=== PATIENT | male | born 1960 | race Caucasian/White ===

== ENCOUNTER 2020-07-11 08:21 | Day surgery (SDC) | payer BC, SELFPAY ==
[2020-07-04 12:35] VITALS: BMI 26.9
--- NOTE | 2020-07-10 09:39 | HO.ANESPROP2 ---
Documented by User: Anny Vanessa 07/10/20 09:47 HPI - Anesthesia Eval Consult details Narrative: 59yo M for Colonoscopy [facility] Surgical History Surgical History H/O arthroscopic knee surgery Hx of colonoscopy Hx of tonsillectomy Social History Social History Smoking Status: Never smoker Second Hand Smoke Exposure: Yes Use of substances other than those prescribed or required for medical reasons: Yes Advance Directives Information Provided: No Recently lost weight without trying: No Meds Allergies Allergy/AdvReac Type Severity Reaction Status Date / Time No Known Allergies Allergy Unverified 06/19/20 15:18 [No Known Allergies*] Home Medications Medication Instructions Recorded Confirmed Type ibuprofen 600 mg PO QID PRN 07/10/20 07/10/20 History tadalafil 1 tab PO DAILY PRN 07/10/20 07/10/20 History Exam Exam Date and Time: July 10, 2020 0939 Height,Weight and Vital Signs: Height 5 ft 5 in Weight 73.482 kg Assessment and Plan Assessment Anesthesia Assessment: Chart Reviewed Documented by User: Diana Paz 07/11/20 10:08 [facility] Surgical History Surgical History H/O arthroscopic knee surgery Hx of colonoscopy Hx of tonsillectomy Social History Social History Smoking Status: Never smoker Second Hand Smoke Exposure: Yes Use of substances other than those prescribed or required for medical reasons: Yes Advance Directives Information Provided: No Recently lost weight without trying: No Meds Allergies Allergy/AdvReac Type Severity Reaction Status Date / Time No Known Allergies Allergy Unverified 06/19/20 15:18 [No Known Allergies*] Home Medications Medication Instructions Recorded Confirmed Type ibuprofen 600 mg PO QID PRN 07/10/20 07/10/20 History tadalafil 1 tab PO DAILY PRN 07/10/20 07/10/20 History Exam Airway Mallampati Class: II TM Dist: >3cm Neck ROM: Full Assessment and Plan Assessment Anesthesia Assessment: Anesthesia Plan Discussed and Chart Reviewed Final Anesthetic Review NPO: Yes ASA Class: I Final Preanesthetic Review: No Changes in Pt Med Stat, Meds/Allgs Chart Reviewed, Consent Obtained/Reviewed and Anes Risks/Benef Reviewed Patient Risk: Low Procedure Risk: Low Assessment/Block/Sedation in SS: Assess/Block/Sedation-SS Anesthetic Plan Anesthetic Plan: MAC: Disposition: Standard PACU
[2020-07-11] VITALS (7 sets, daily range): BP systolic 138–151; BP diastolic 66–85; PULSE 58–88; RESP 16–20; TEMP 36.1–36.4; O2SAT 92–99; BMI 26.9
[2020-07-11] MEDS: Lactated Ringers 1,000 ML 100 ML IVCONT (08:57)
[2020-07-11] MEDS: Albuterol Sulfate (0.083%) 2.5 MG/3 ML VIAL.NEB INHALE (11:47)
--- NOTE | 2020-07-11 12:15 | OP_ITS ---
SURGEON: Raudel Casey MD INDICATIONS: The patient presents for evaluation of colorectal cancer screening. Full consent has been obtained from him for this, including risks of bleeding and perforation. PREOPERATIVE DIAGNOSIS: Colorectal cancer screening. POSTOPERATIVE DIAGNOSIS: PROCEDURE PERFORMED: Colonoscopy to the cecum and terminal ileum with biopsy and removal of polyps. ESTIMATED BLOOD LOSS: COMPLICATIONS: ANESTHESIA: Monitored anesthesia care. ASSISTANTS: SPECIMENS: POSTOPERATIVE DIAGNOSES: Colorectal cancer screening, small colon polyps, sigmoid diverticulosis, and small internal hemorrhoids. DESCRIPTION OF PROCEDURE: The patient was placed in the left lateral decubitus position. The digital rectal exam revealed no abnormalities. The Olympus video pediatric colonoscope was entered into the rectum and advanced easily to the cecum. Once in the cecum, I did identify normal-appearing cecal pouch with appendiceal orifice and a normal-appearing ileocecal valve. The terminal ileum was cannulated and appeared normal. Scope was withdrawn back in the colon. The entire cecum and ileocecal valve appeared normal. The scope was slowly withdrawn assessing all mucosal surfaces carefully. Preparation was excellent. At 20 cm and at 60 cm, were flat less than 5 mm polyps, which were each biopsied and completely removed with cold biopsy forceps. I did not visualize any other polyps, colitis, nor angiodysplasia. There was a mild amount of sigmoid diverticulosis. In the rectum, scope was retroflexed visualizing small internal hemorrhoids, but no other pathology. The rectal mucosa appeared normal. The scope was straightened and withdrawn from the patient. He tolerated the procedure well and was returned to the recovery area in stable condition. IMPRESSION: 1. Small colon polyps, status post biopsy and removal. 2. Mild diverticulosis. 3. Small internal hemorrhoids. PLAN: The results of the biopsies will be checked. If these are tubular adenoma, I would recommend a followup colonoscopy in 5 years. If they are both hyperplastic, I would recommend a followup colonoscopy in 10 years. He will otherwise see me on a p.r.n. basis. This has been discussed with his . MD NAYANA Mccallum/JOSHUA / [phone]
--- NOTE | 2020-07-11 12:36 | HO.POSTANES ---
Post Anesthesia Evaluation Post Anesthesia Evaluation Vital Signs: Vital Signs Temp Pulse Resp BP Pulse Ox 07/11/20 11:43 74 18 138/66 98 07/11/20 11:28 62 20 151/84 H 93 07/11/20 11:15 64 20 141/82 H 93 07/11/20 11:11 20 95 07/11/20 11:00 77 18 92 07/11/20 10:45 97.0 F 88 16 147/85 H 94 07/11/20 08:55 97.5 F 58 16 141/72 H 99 Anesthesia: Monitored Mental Status: Awake Pain Control: Satisfactory Nausea/Vomiting: None Hydration: Adequate Anesthesia-Related Issues: No Anes. Related Issues (Patient a little wheezy post procedure. Sats 93. Albuterol treatment, incentive spirometry ordered. Patient feels much better. Sats 98% in room air. Ok to discharge. Advised to call pcp if symptoms recur.)
== END 2020-07-11 12:58 | disposition home or self-care (01) ==
PROVIDERS: PCP Internal Medicine; Visit Provider Internal Medicine
PROC: 0DJD8ZZ Inspection of Lower Intestinal Tract, Via Natural or Artificial Opening Endoscopic (ICD-10-PCS; CPT 45378; principal; 2020-07-11 09:30)
DX: Z12.11 Encounter for screening for malignant neoplasm of colon (principal); D12.4 Benign neoplasm of descending colon; D12.5 Benign neoplasm of sigmoid colon; K57.30 Diverticulosis of large intestine without perforation or abscess without bleeding; K64.8 Other hemorrhoids
CPT/HCPCS: 45380; 88305; 94640; J3010

== ENCOUNTER 2020-07-16 09:47 | Outpatient (REF) | payer BC, SELFPAY ==
--- NOTE | 2020-07-16 09:57 | XR_ITS ---
EXAMINATION: XR CHEST CLINICAL INFORMATION: Cough COMPARISON: None TECHNIQUE: 2 frontal views and a lateral projection are obtained for a total of 3 views. FINDINGS: The lungs are clear. There is no airspace consolidation or groundglass opacity. The vascularity is normal. The costophrenic sulci are clear. There is mild hyperinflation. The heart is normal in size. The hilar and mediastinal contours are normal. Bony structures are unremarkable. IMPRESSION: Lungs clear.
== END 2020-07-16 09:48 | disposition home or self-care (01) ==
LOC: HO.XRAY 09:47
PROVIDERS: PCP Internal Medicine; Visit Provider Internal Medicine
DX: R05 Cough (principal)
CPT/HCPCS: 71046

== ENCOUNTER → 2020-09-10 14:00 | Outpatient (BNVA) | payer BC, SELFPAY | PROVIDERS: Visit Provider Orthopaedic Surgery | DX: Z76.89 Persons encountering health services in other specified circumstances (principal) ==

== ENCOUNTER 2020-10-28 07:11 | Outpatient (REF) | payer BC, SELFPAY ==
[2020-10-28 07:39] LABS: MANUAL DIFF FLAG NO
[2020-10-28 07:44] LABS: Basophils Absolute Auto 0.1 X10*3/uL (0.0-0.2); Basophils Percent Auto 0.8 % (0-2); Eosinophils Absolute Auto 0.3 X10*3/uL (0.0-0.4); Eosinophils Percent Auto 3.2 % (0-4); Hematocrit 47.9 % (42-52); Hemoglobin 15.7 g/dl (14.0-18.0); Imm Gran Abs Auto 0.02 X10*3/uL (0.00-0.03); Imm Gran Pct Auto 0.3 % (0.0-0.4); Lymphocytes Absolute Auto 2.3 X10*3/uL (1.2-4.9); Lymphocytes Percent Auto 29.3 % (20-40); Mean Corpuscular HGB Conc 32.8 g/dl (31.0-36.0); Mean Corpuscular Volume 91.6 fL (80-98); Mean Platelet Volume 10.2 fL (9.4-12.4); Monocytes Absolute Auto 0.8 X10*3/uL (0.1-1.2); Monocytes Percent Auto 9.6 % (2-11); Neutrophils Absolute Auto 4.4 X10*3/uL (2.0-8.3); Neutrophils Percent Auto 56.8 % (45-73); Platelet Count 211 X10*3/uL (160-400); Red Blood Count 5.23 X10*6/uL (4.60-5.80); Red Cell Distribution Width 12.6 % (11.0-16.0); White Blood Count 7.8 X10*3/uL (4.8-10.8)
[2020-10-28 08:00] LABS: Glucose Urine UA NEG (NEG); Leukocyte Esterase Urine NEG (NEG); Nitrite Urine NEG (NEG); PH 5.5 (5.0-8.0); Specific Gravity - Urine >= 1.030 (1.005-1.025); Urine Blood NEG (NEG); Urine Ketones NEG (NEG); Urine Protein NEG (NEG-TRACE)
[2020-10-28 08:08] LABS: Appearance Urine CLEAR; Color Urine YELLOW
[2020-10-28 08:39] LABS: Alanine Aminotransferase 22 U/L (0-40); Albumin Level 4.3 g/dL (3.5-5.0); Alkaline Phosphatase 82 U/L (39-117); Anion Gap 12 (12-20); Aspartate Amino Transferase 20 U/L (5-37); Bilirubin Total 0.6 mg/dL (0.0-1.0); Blood Urea Nitrogen 18 mg/dL (9-16); Calcium 8.9 mg/dL (8.4-10.2); Carbon Dioxide 27 mmol/L (22-29); Chloride 109 mmol/L (96-108); Cholesterol 201 mg/dL; Estimated Glomerular Filt Rate > 60; Glucose Fasting 92 mg/dL (60-99); HDL Cholesterol 33 mg/dL; LDL Cholesterol Calculated 128 mg/dl; Potassium 3.9 mmol/l (3.3-5.1); Sodium 144 mmol/L (135-145); Total Protein 6.5 g/dL (6.5-8.0); Triglycerides 202 mg/dL
[2020-10-28 09:00] LABS: Prostate Specific Antigen Scr 2.85 ng/mL (<0.05-4.0)
== END 2020-10-28 07:12 | disposition home or self-care (01) ==
LOC: HO.LAB 07:11
PROVIDERS: Visit Provider Internal Medicine
DX: Z00.00 Encounter for general adult medical examination without abnormal findings (principal); E78.2 Mixed hyperlipidemia; E78.6 Lipoprotein deficiency; R97.20 Elevated prostate specific antigen [PSA]
CPT/HCPCS: 36415; 80053; 80061; 81003; 84153; 85025

== ENCOUNTER 2021-05-15 10:18 | Outpatient (REF) | payer BC, SELFPAY ==
[2021-05-15 11:04] LABS: PSA,Total (Free>4and<10) 2.43 ng/mL (0.00-4.00)
== END 2021-05-15 10:19 | disposition home or self-care (01) ==
LOC: HO.LNP 10:18
PROVIDERS: Visit Provider Internal Medicine
DX: R97.20 Elevated prostate specific antigen [PSA] (principal); Z12.5 Encounter for screening for malignant neoplasm of prostate
CPT/HCPCS: 84153

== ENCOUNTER 2022-01-19 10:52 | Outpatient (REF) | payer BC, SELFPAY ==
[2022-01-19 10:57] LABS: MANUAL DIFF FLAG NO
[2022-01-19 11:09] LABS: Basophils Absolute Auto 0.1 X10*3/uL (0.0-0.2); Basophils Percent Auto 0.8 % (0-2); Eosinophils Absolute Auto 0.2 X10*3/uL (0.0-0.4); Hematocrit 46.2 % (42.0-52.0); Hemoglobin 15.1 g/dl (14.0-18.0); Imm Gran Abs Auto 0.03 X10*3/uL (0.00-0.03); Imm Gran Pct Auto 0.4 % (0.0-0.4); Lymphocytes Absolute Auto 2.3 X10*3/uL (1.2-4.9); Lymphocytes Percent Auto 29.6 % (20-40); Mean Corpuscular HGB Conc 32.7 g/dl (31.0-36.0); Mean Corpuscular Volume 91.7 fL (80.0-98.0); Mean Platelet Volume 10.8 fL (9.4-12.4); Monocytes Absolute Auto 0.8 X10*3/uL (0.1-1.2); Monocytes Percent Auto 9.7 % (2-11); Neutrophils Absolute Auto 4.4 x10*3/uL (2.0-8.3); Neutrophils Percent Auto 56.5 % (45-73); Platelet Count 241 X10*3/uL (160-400); Red Blood Count 5.04 X10*6/uL (4.60-5.80); Red Cell Distribution Width 13.2 % (11.0-16.0); White Blood Count 7.7 X10*3/uL (4.8-10.8)
[2022-01-19 11:16] LABS: Alanine Aminotransferase 23 U/L (0-40); Albumin Level 4.1 g/dL (3.5-5.0); Alkaline Phosphatase 85 U/L (39-117); Anion Gap 11 (12-20); Aspartate Amino Transferase 21 U/L (5-37); Bilirubin Total 0.7 mg/dL (0.0-1.0); Blood Urea Nitrogen 19 mg/dL (9-16); Calcium 9.3 mg/dL (8.4-10.2); Carbon Dioxide 27 mmol/L (22-29); Chloride 110 mmol/L (96-108); Cholesterol 216 mg/dL; Estimated Glomerular Filt Rate > 60; Glucose Fasting 90 mg/dL (60-99); HDL Cholesterol 33 mg/dL; LDL Cholesterol Calculated 155 mg/dl; Potassium 4.2 mmol/L (3.3-5.1); Sodium 144 mmol/L (135-145); Total Protein 6.7 g/dL (6.5-8.0); Triglycerides 141 mg/dL
[2022-01-19 11:18] LABS: Appearance Urine CLEAR; Color Urine YELLOW; Glucose Urine UA NEG (NEG); Leukocyte Esterase Urine NEG (NEG); Nitrite Urine NEG (NEG); PH 5.5 (5.0-8.0); Specific Gravity - Urine >= 1.030 (1.005-1.025); Urine Blood TRACE (NEG); Urine Ketones NEG (NEG); Urine Protein NEG (NEG-TRACE)
[2022-01-19 11:40] LABS: PSA,Total (Free>4and<10) 2.32 ng/mL (0.00-4.00)
== END 2022-01-19 10:53 | disposition home or self-care (01) ==
LOC: HO.LNP 10:52
PROVIDERS: Visit Provider Internal Medicine
DX: Z00.00 Encounter for general adult medical examination without abnormal findings (principal); Z12.5 Encounter for screening for malignant neoplasm of prostate; E78.2 Mixed hyperlipidemia; E78.6 Lipoprotein deficiency; R97.20 Elevated prostate specific antigen [PSA]
CPT/HCPCS: 80053; 80061; 81001; 81003; 84153; 85025

== ENCOUNTER 2023-03-22 16:38 | Outpatient (REF) | payer BC, SELFPAY ==
[2023-03-22 16:59] LABS: MANUAL DIFF FLAG NO
[2023-03-22 17:04] LABS: Basophils Absolute Auto 0.1 X10*3/uL (0.0-0.2); Basophils Percent Auto 0.8 % (0-2); Eosinophils Absolute Auto 0.4 X10*3/uL (0.0-0.4); Eosinophils Percent Auto 4.5 % (0-4); Hemoglobin 15.7 g/dl (14.0-18.0); Imm Gran Abs Auto 0.02 X10*3/uL (0.00-0.03); Imm Gran Pct Auto 0.3 % (0.0-0.4); Lymphocytes Absolute Auto 2.8 X10*3/uL (1.2-4.9); Lymphocytes Percent Auto 36.5 % (20-40); Mean Corpuscular HGB Conc 32.7 g/dl (31.0-36.0); Mean Corpuscular Hemoglobin 30.2 pg (27.0-33.0); Mean Corpuscular Volume 92.3 fL (80.0-98.0); Mean Platelet Volume 10.7 fL (9.4-12.4); Monocytes Absolute Auto 0.7 X10*3/uL (0.1-1.2); Monocytes Percent Auto 8.8 % (2-11); Neutrophils Absolute Auto 3.8 x10*3/uL (2.0-8.3); Neutrophils Percent Auto 49.1 % (45-73); Platelet Count 208 X10*3/uL (160-400); Red Cell Distribution Width 13.1 % (11.0-16.0); White Blood Count 7.7 X10*3/uL (4.8-10.8)
[2023-03-22 17:46] LABS: PSA,Total (Free>4and<10) 3.75 ng/mL (0.00-4.00)
[2023-03-22 17:50] LABS: Appearance Urine Clear; Color Urine Yellow; Glucose Urine UA Negative (Negative); Leukocyte Esterase Urine Negative (Negative); Nitrite Urine Negative (Negative); PH 5.5 (5.0-9.0); Urine Blood Negative (Negative); Urine Ketones Negative (Negative); Urine Protein Negative (Neg-Trace)
[2023-03-22 20:40] LABS: Alanine Aminotransferase 23 U/L (0-40); Alkaline Phosphatase 77 U/L (39-117); Anion Gap 17 (12-20); Aspartate Amino Transferase 21 U/L (5-37); Bilirubin Total 0.5 mg/dL (0.0-1.0); Blood Urea Nitrogen 20 mg/dL (9-16); Calcium 9.3 mg/dL (8.4-10.2); Carbon Dioxide 24 mmol/L (22-29); Chloride 108 mmol/L (96-108); Cholesterol 203 mg/dL; Estimated Glomerular Filt Rate 56; Glucose Fasting 84 mg/dL (60-99); HDL Cholesterol 27 mg/dL; LDL Cholesterol Calculated 120 mg/dl; Potassium 3.9 mmol/L (3.3-5.1); Sodium 145 mmol/L (135-145); Total Protein 6.4 g/dL (6.5-8.0); Triglycerides 282 mg/dL
== END 2023-03-22 16:39 | disposition home or self-care (01) ==
LOC: HO.10HDLNP 16:38
PROVIDERS: Visit Provider Internal Medicine
DX: Z13.89 Encounter for screening for other disorder (principal)
CPT/HCPCS: 80053; 80061; 81003; 84153; 85025

== ENCOUNTER 2023-04-26 10:45 | Outpatient (REF) | payer BC, SELFPAY ==
[2023-04-26 11:28] LABS: PSA,Total (Free>4and<10) 4.26 ng/mL (0.00-4.00)
[2023-04-28 12:28] LABS: Free Prostate Spec Ag 1.4 ng/mL; Percent Free Prostate Spec Ag 31 % (calc) (>25); Prostate Specific Ag Total 4.5 ng/mL (< OR = 4.0)
== END 2023-04-26 10:46 | disposition home or self-care (01) ==
LOC: HO.LNP 10:45
PROVIDERS: Visit Provider Internal Medicine
DX: Z12.5 Encounter for screening for malignant neoplasm of prostate (principal); R97.20 Elevated prostate specific antigen [PSA]
CPT/HCPCS: 84153; 84154

== ENCOUNTER 2024-03-23 10:51 | Outpatient (REF) | payer BC, SELFPAY ==
[2024-03-23 10:53] LABS: MANUAL DIFF FLAG NO
[2024-03-23 10:59] LABS: Basophils Absolute Auto 0.1 X10*3/uL (0.0-0.2); Basophils Percent Auto 0.6 % (0-2); Eosinophils Absolute Auto 0.3 X10*3/uL (0.0-0.4); Eosinophils Percent Auto 4.2 % (0-4); Hematocrit 47.8 % (42.0-52.0); Hemoglobin 16.2 g/dl (14.0-18.0); Imm Gran Abs Auto 0.04 X10*3/uL (0.00-0.03); Imm Gran Pct Auto 0.5 % (0.0-0.4); Lymphocytes Absolute Auto 2.4 X10*3/uL (1.2-4.9); Lymphocytes Percent Auto 30.6 % (20-40); Mean Corpuscular HGB Conc 33.9 g/dl (31.0-36.0); Mean Corpuscular Hemoglobin 30.5 pg (27.0-33.0); Mean Platelet Volume 10.9 fL (9.4-12.4); Monocytes Absolute Auto 0.7 X10*3/uL (0.1-1.2); Monocytes Percent Auto 9.2 % (2-11); Neutrophils Absolute Auto 4.3 x10*3/uL (2.0-8.3); Neutrophils Percent Auto 54.9 % (45-73); Platelet Count 217 X10*3/uL (160-400); Red Blood Count 5.31 X10*6/uL (4.60-5.80); White Blood Count 7.8 X10*3/uL (4.8-10.8)
[2024-03-23 11:20] LABS: Alanine Aminotransferase 24 U/L (0-40); Albumin Level 4.2 g/dL (3.5-5.0); Alkaline Phosphatase 67 U/L (39-117); Anion Gap 11 (12-20); Aspartate Amino Transferase 23 U/L (5-37); Bilirubin Total 0.5 mg/dL (0.0-1.0); Blood Urea Nitrogen 22 mg/dL (9-16); Calcium 9.3 mg/dL (8.4-10.2); Carbon Dioxide 27 mmol/L (22-29); Chloride 108 mmol/L (96-108); Cholesterol 222 mg/dL (<200); Estimated Glomerular Filt Rate > 60; Glucose Fasting 95 mg/dL (60-99); HDL Cholesterol 35 mg/dL (>40); LDL Cholesterol Calculated 165 mg/dL (<100); Potassium 4.3 mmol/L (3.3-5.1); Sodium 142 mmol/L (135-145); Total Protein 6.9 g/dL (6.5-8.0); Triglycerides 110 mg/dL (<150)
[2024-03-23 12:01] LABS: Appearance Urine Clear; Color Urine Yellow; Glucose Urine UA Negative (Negative); Leukocyte Esterase Urine Negative (Negative); Nitrite Urine Negative (Negative); PH 5.5 (5.0-9.0); Specific Gravity - Urine 1.025 (1.005-1.025); Urine Blood Negative (Negative); Urine Ketones Negative (Negative); Urine Protein Negative (Neg-Trace)
[2024-03-23 12:09] LABS: Bacteria Urine None Seen (None Seen); Hyaline Casts Urine 0-2 /LPF (0-2); RBC Urine 0-2 /HPF (0-2); Squamous Epithelial Cell Urine 0-2 /HPF (0-2); WBC Urine 0-5 /HPF (0-5)
[2024-03-23 14:11] LABS: PSA,Total (Free>4and<10) 4.78 ng/mL (0.00-4.00)
[2024-03-26 10:38] LABS: Free Prostate Spec Ag 1.7 ng/mL; Percent Free Prostate Spec Ag 35 % (calc) (>25); Prostate Specific Ag Total 4.9 ng/mL (< OR = 4.0)
== END 2024-03-23 10:52 | disposition home or self-care (01) ==
LOC: HO.LNP 10:51
PROVIDERS: Visit Provider Internal Medicine
DX: E78.2 Mixed hyperlipidemia (principal); R97.20 Elevated prostate specific antigen [PSA]; Z12.5 Encounter for screening for malignant neoplasm of prostate
CPT/HCPCS: 80053; 80061; 81001; 84153; 84154; 85025

== ENCOUNTER 2024-09-14 11:05 | Outpatient (REF) | payer BC, SELFPAY ==
[2024-09-14 11:54] LABS: Cholesterol 222 mg/dL (<200); HDL Cholesterol 38 mg/dL (>40); LDL Cholesterol Calculated 158 mg/dL (<100); Triglycerides 130 mg/dL (<150)
== END 2024-09-14 11:06 | disposition home or self-care (01) ==
LOC: HO.LNP 11:05
PROVIDERS: Visit Provider Internal Medicine
DX: E78.2 Mixed hyperlipidemia (principal); E78.00 Pure hypercholesterolemia, unspecified
CPT/HCPCS: 80061

== ENCOUNTER 2024-09-17 15:27 | Outpatient (REF) | payer BC, SELFPAY ==
--- OUTSIDE RECORDS SUMMARY | 2024-09-17 15:29 | XMS_ITS ---
Author Organization Ayden Ford MD Address [address] [place] [phone] Care Team Providers Care Metalsmith Helper Name Role Phone Ayden Ford Primary Care Provider RESULTS Component Value Reference Range Notes Lipid Panel Reviewed date:09/14/2024 01:42:02 PM Interpretation: Performing Lab:[facility], [address] [place] [phone] Notes/Report: Triglycerides 130 <150 mg/dL Desirable Triglyceride: [...] Location Date Provider Diagnosis Ayden Ford MD [address] [place] [address] [address] [place], [place] [phone] 09/14/2024 Ayden Ford Elevated cholesterol with elevated triglycerides E78.2 and Hypercholesterolemia E78.00 ASSESSMENTS Encounter Date Diagnosis Assessment Notes Treatment Notes Treatment Clinical Notes 09/14/2024 Elevated cholesterol with elevated triglycerides (ICD-10 - E78.2) 09/14/2024 Hypercholesterolemia (ICD-10 - E78.00) PLAN OF TREATMENT Next Appt Details Provider Name:Ayden briceño, 03/26/2025 07:00:00 AM, [address] [place] [address], [address], [place], [place], [phone], Provider Name:Ayden briceño, 04/08/2025 09:30:00 AM, [address] [place] [address], [address], [place], [place], [phone],
--- OUTSIDE RECORDS SUMMARY | 2024-09-17 15:29 | XMS_ITS ---
Author Organization Ayden Ford MD Address [address] [place] [phone] Care Team Providers Care Improvement Spec Name Role Phone Ayden Ford Primary Care Provider [phone] ALLERGIES No Known Allergies REASON FOR VISIT 6 month MEDICATIONS Medication SIG (Take, Route, Fr equency, Duration) Notes Start Date End Date Status Ibuprofen 200 MG 1 tablet with food o r milk as needed Orally hs Active Indomethacin 50 MG 1 capsule with food or milk Orally Three times a day for 20 days 06/03/2020 Not-Taking Tadalafil 20 MG 1 tablet Orally once a day as needed for 30 day(s) 11/01/2019 Not-Taking VITAL SIGNS BMI 25.82 kg/m2 09/17/2024 Blood pressure systolic 122 mm Hg 09/17/20 24 Blood pressure diastolic 58 mm Hg 024 Height 66 in 09/17/2024 Weight 160 lbs 09/17/2024 Encounters Encounter Location Date Provider Diagnosis Ayden Ford MD [address] [place] [phone] 09/17/2024 Ayden Ford Elevated cholesterol with elevated triglycerides E78.2 and Elevated BUN R79.9 ASSESSMENTS Encounter Date Diagnosis Assessment Notes Treatment Notes Treatment Clinical Notes 09/17/2024 Elevated cholesterol with elevated triglycerides (ICD-10 - E78.2) doing better on no meds 09/17/2024 Elevated BUN (ICD-10 - R79.9) PLAN OF TREATMENT Treatment Notes Assessment Notes Elevated cholesterol with elevated trigl ycerides doing better on no meds Pending Test Test Name Order Date Blood Urea Nitrogen 09/17/2024 Creatinine 09/17/2024 Next Appt Details Provider Name:Ayden Thompson Skyla ier, 03/26/2025 07:00:00 AM, [address] [place] [address], [address], [place], [place], [phone], Provider Name:Ayden Sanchezniels ier, 04/08/2025 09:30:00 AM, [address] [place] [address], [address], [place], [place], [phone], Progress Notes * Examination Category Sub-Category Detail Notes General Examination GENERAL APPEARANCE: well dev eloped, well nourished HEAD: normocephalic HEART: no murmurs, rubs, ga llops , regular rate and rhythm LUNGS: no wheezes, rales, r honchi , good air movement , clear to auscultation bilaterally SKIN: good turgor
--- OUTSIDE RECORDS SUMMARY | 2024-09-17 15:30 | XMS_ITS | Patient Health Record ---
Author Organization Ayden Ford MD Address [address] [place], [place] [id number] Care Team Providers Care Mapping Analyst Name Role Phone Ayden Ford Primary Care Provider ALLERGIES No Known Allergies RESULTS Component Value Reference Range Notes Hold Lav - Possible Hematolo gy Reviewed date:03/23/2024 12:36:06 PM Interpretation: Performing Lab:[facility], [address] [place] [phone] Notes/Report: Hold Lav - Possible Hematology SEE NOTE Specimen will be held untested for 8 hours. Call Hematology if testing is desired. PSA Free and Total Reviewed date:03/26/2024 05:20:03 PM Interpretation: Performing Lab:[facility], [address] [place] [phone] Notes/Report: Prostate Specific Ag Total 4.9 < OR = 4.0 ng/ mL Percent Free Prostate Spec Ag 35 >25 % (calc ) PSA(ng/mL) Free PSA(%) Estimated(x) Probability of Cancer(as%) 0-2.5 (*) Approx. 1 2.6-4.0(1) 0-27(2) 24(3) 4.1-10(4) 0-10 56 11-15 28 16-20 20 21-25 16 >or =26 8 >10(+) N/A >50 References:(1)Karen et al.:Urology 60: 469-474 (2002) (2)Karen et al.:J.Urol 168: 922-925 (2001) Free PSA(%) Sensitivity(%) Specificity(%) < or = 25 85 19 < or = 30 93 9 (3)Catalona et al.:ZACK 277: 0195-8480 (1996) (4)Catalona et al.:ZACK 279: 5493-3887 (1997) (x)These estimates vary with age, ethnicity, family history and CLEMENTINE results. (*)The diagnostic usefulness of % Free PSA has not been established in patients with total PSA below 2.6 ng/mL (+)In men with PSA above 10 ng/mL, prostate cancer risk is determined by total PSA alone. The Total PSA value from this assay system is standardized against the equimolar PSA standard. The test result will be approximately 20% higher when compared to the WHO-standardized Total PSA (Siemens assay). Comparison of serial PSA results should be interpreted with this fact in mind. PSA was performed using the Richard [place] Immunoassay method. Values obtained from different assay methods cannot be used interchangeably. PSA levels, regardless of value, should not be interpreted as absolute evidence of the presence or absence of disease. THIS TEST WAS PERFORMED AT: [facility] [address] [phone] BERTA MONATNA MD Free Prostate Spec Ag 1.7 Complete Blood Count Auto Di ff Reviewed date:03/23/2024 12:35:26 PM Interpretation: Performing Lab:[facility], [address] [place] [phone] Notes/Report: White Blood Count 7.8 4.8-10.8 X10*3/uL Red Blood Count 5.31 4.60-5.80 X10*6/uL Hemoglobin 16.2 14.0-18.0 g/dl Hematocrit 47.8 42.0-52.0 % Mean Corpuscular Volume 90.0 80.0-98.0 fL Mean Corpuscular Hemoglobin 30.5 27.0-33.0 pg Mean Corpuscular HGB Conc 33.9 31.0-36.0 g/dl Red Cell Distribution Width 13.0 11.0-16.0 % Platelet Count 217 160-400 X10*3/uL Mean Platelet Volume 10.9 9.4-12.4 fL Neutrophils Percent Auto 54.9 45-73 % Imm Gran Pct Auto 0.5 0.0-0.4 % Lymphocytes Percent Auto 30.6 20-40 % Monocytes Percent Auto 9.2 2-11 % Eosinophils Percent Auto 4.2 0-4 % Basophils Percent Auto 0.6 0-2 % NRBC Pct Auto 0.0 0.0-0.2 /100WBC Neutrophils Absolute Auto 4.3 2.0-8.3 x10*3/u L Imm Gran Abs Auto 0.04 0.00-0.03 X10*3/uL Lymphocytes Absolute Auto 2.4 1.2-4.9 X10*3/u L Monocytes Absolute Auto 0.7 0.1-1.2 X10*3/uL Eosinophils Absolute Auto 0.3 0.0-0.4 X10*3/u L Basophils Absolute Auto 0.1 0.0-0.2 X10*3/uL NRBC Abs Auto 0.000 0.0-0.012 X10*3/uL Comprehensive [place]. Panel Fa st Reviewed date:03/23/2024 12:38:00 PM Interpretation: Performing Lab:[facility], [address] [place] [phone] Notes/Report: Sodium 142 135-145 mmol/L Potassium 4.3 3.3-5.1 mmol/L Chloride 108 96-108 mmol/L Carbon Dioxide 27 22-29 mmol/L Anion Gap 11 12-20 Blood Urea Nitrogen 22 9-16 mg/dL Creatinine 1.13 0.5-1.4 mg/dL Estimated Glomerular Filt Rate > 60 NOTE: For -Congolese individuals, multiply the result by 1.210. Chronic Kidney Disease: Estimated GFR < 60 mL/min/1.73m2 Severe Kidney Disease: Estimated GFR < 15 mL/min/1.73m2 Glucose Fasting 95 60-99 mg/dL Calcium 9.3 8.4-10.2 mg/dL Bilirubin Total 0.5 0.0-1.0 mg/dL Aspartate Amino Transferase 23 5-37 U/L Alanine Aminotransferase 24 0-40 U/L Total Protein 6.9 6.5-8.0 g/dL Albumin Level 4.2 3.5-5.0 g/dL Alkaline Phosphatase 67 39-117 U/L Lipid Panel Reviewed date:03/23/2024 12:35:57 PM Interpretation: Performing Lab:[facility], [address] [place] [phone] Notes/Report: Triglycerides 110 <150 mg/dL Desirable Triglyceride: less than 150 mg/dL Borderline High Triglyceride 150-199 mg/dL High Triglyceride: 200-499 mg/dL Very High Triglyceride: greater than or equal to 5OO mg/dL Cholesterol 222 <200 mg/dL Desirable Cholesterol: less than 200 mg/dL Borderline High Cholesterol: 200-239 mg/dL High Cholesterol: greater than 239 mg/dL LDL Cholesterol Calculated 165 <100 mg/dL Desirable LDL: less than 100 mg/dL Near Optimal/Above Optimal LDL: 110-129 mg/dL Borderline High LDL: 130-159 mg/dL High LDL: 160-189 mg/dL Very High LDL: greater than or equal to 190 mg/dL HDL Cholesterol 35 >40 mg/dL Desirable HDL: greater than 40 mg/dL Note: This HDL assay may give artificially low results in patients with liver disease. PSA,Total (Free>4and<10) Reviewed date:03/30/2024 10:39:07 AM Interpretation:see back 03-30-2024 Performing Lab:[facility], [address] [place] [phone] Notes/Report: PSA,Total (Free>4and<10) 4.78 0.00-4.00 ng/mL PSA methodology: Rivas Alinity i Chemiluminescent Microparticle Immunoassay (CMIA) UA ClnCatch+Micro w/rflx Cul t Reviewed date:03/27/2024 04:59:50 PM Interpretation: Performing Lab:[facility], [address] [place] [phone] Notes/Report: Urine, Clean Catch Color Urine Yellow Appearance Urine Clear PH 5.5 5.0-9.0 Glucose Urine UA Negative Negative mg/dL Urine Blood Negative Negative Specific [employer] - Urine 1.025 1.005-1.025 Urine Protein Negative Neg-Trace mg/dL Urine Ketones Negative Negative mg/dL Nitrite Urine Negative Negative Leukocyte Esterase Urine Negative Negative RBC Urine 0-2 0-2 /HPF WBC Urine 0-5 0-5 /HPF Squamous Epithelial Cell Urine 0-2 0-2 /HPF Bacteria Urine None Seen None Seen Hyaline Casts Urine 0-2 0-2 /LPF Hold Gold Reviewed date:09/14/2024 01:27:23 PM Interpretation: Performing Lab:[facility], [address] [place] [phone] Notes/Report: Hold Gold See Note Specimen held untested for 24 hours; Call to request Chemistry testing. Lipid Panel Reviewed date:09/14/2024 01:42:02 PM Interpretation: Performing Lab:[facility], [address] [place] [phone] Notes/Report: Triglycerides 130 <150 mg/dL Desirable Triglyceride: [...] in patients with liver disease. REASON FOR REFERRAL No Information MEDICATIONS Medication SIG (Take, Route, Fr equency, [...] as needed for 30 day(s) 11/01/2019 Not-Taking IMMUNIZATIONS Vaccine Route Administration Date Status Comme nts Tetanus Unknown 05/15/2009 Administered Flu Vaccine IM Intramuscular 07/03/2014 Administered [facility] Flu Vaccine IM Intramuscular 07/03/2015 Administered pt re cieved the vaccine at the [facility] in [place]. Flu Vaccine IM Intramuscular 07/15/2016 Administered pt wa s given the vaccine at [facility] in [place]. Flu Vaccine Unknown 07/04/2017 Administered at work Flu Vaccine IM Intramuscular 07/09/2018 Administered pt dean s given the vaccine at [facility] in [place], [place] Fluarix Quadrivalent IM Intramuscular 07/20/2019 Administmj carroll pt was given the vaccine at [facility] in [place]. Fluarix Quadrivalent Unknown 07/04/2020 Administered At work Fluarix Quadrivalent Unknown 07/15/2021 Administered At work SARS-COV-2 Moderna Unknown 12/31/2020 Administered SARS-COV-2 Moderna Unknown 01/27/2021 Administered Fluarix Quadrivalent Unknown 07/23/2022 Administered [facility] Fluarix Quadrivalent Unknown 08/17/2023 Administered [facility] DECLINED, FLU Unknown 07/02/2014 Refused PPSV23 (Pnemovax) Unknown 08/19/2015 Refused SOCIAL HISTORY Tobacco Use: Social History Observation Description Date Details (start date - stop date) Never Smoker NA - NA Sex Assigned At : Social History Observation Description Sex Assigned At Unknown Tobacco Use/Smoking Question Answer Notes Patient is a nonsmoker Additional Findings: Tobacco Non-User Cu rrent non-smoker, currently using no form of tobacco Alcohol Screen Question Answer Notes Did you have a drink contain ing alcohol in the past year? Yes How often did you have a dri nk containing alcohol in the past year? 2 to 4 times a month (2 points) How many drinks did you have on a typical day when you were drinking in the past year? 1 or 2 drinks (0 point) How often did you have 6 or more drinks on one occasion in the past year? Never (0 point) Points 2 Interpretation Negative PROBLEMS Problem Type ICD Code Onset Dates Problem Status W/U Status Risk SNOMED Code Notes Problem Elevated PSA (R97.2) Active confirmed E levated PSA (032014513) Problem Low HDL (under 40) (E78.6) Active confirmed 600450973 Problem Elevated cholesterol with elevated triglycerides (E78.2) Active confirmed 184736494 Problem Vasculogenic erectil e dysfunction, unspecified vasculogenic erectile dysfunction type (N52.9) Active confirmed 826795524 Problem Acute idiopathic gou t involving toe of right foot (M10.071) Active confirmed 9420297913783852 Problem Hypercholesterolemia (E78.00) Active confirmed 34783628 VITAL SIGNS Blood pressure diastolic 58 mm Hg 09/17/2024 Height 66 in 09/17/2024 Blood pressure systolic 122 mm Hg 09/17/2024 Weight 160 lbs 09/17/2024 BMI 25.82 kg/m2 09/17/2024 Encounters Encounter Location Date Provider Diagnosis Ayden Ford MD [address] [place] [phone] 03/30/2024 Ayden Ford Elevated PSA R97.2 ; Elevated BUN R79.9 ; Hypercholesterolemia E78.00 ; Colon cancer screening Z12.11 and Encounter for screening for depression Z13.31 Ayden Ford MD [address] [place] [id number] 03/23/2024 Ayden Ford Elevated cholesterol with elevated triglycerides E78.2 and Elevated PSA R97.20 Ayden Ford MD [address] [place] [address] [id number] 09/14/2024 Ayden Ford Elevated cholesterol with elevated triglycerides E78.2 and Hypercholesterolemia E78.00 Ayden Ford MD [address] [id number] 09/17/2024 Ayden Ford Elevated cholesterol with elevated triglycerides E78.2 and Elevated BUN R79.9 Ayden Ford MD [address] [place] [id number] 12/13/2023 Ayden Ford Edema of left eyelid H02.846 and Edema of right eyelid H02.843 ASSESSMENTS Encounter Date Diagnosis Assessment Notes Treatment Notes Treatment Clinical Notes 03/30/2024 Elevated BUN (ICD-10 - R79.9) 03/30/2024 Elevated PSA (ICD-10 - R97.2) referral back to urology 03/23/2024 Elevated cholesterol with elevated triglycerides (ICD-10 - E78.2) 03/23/2024 Elevated PSA (ICD-10 - R97.20) 09/14/2024 Elevated cholesterol with elevated triglycerides (ICD-10 - E78.2) 09/14/2024 Hypercholesterolemia (ICD-10 - E78.00) 09/17/2024 Elevated BUN (ICD-10 - R79.9) 09/17/2024 Elevated cholesterol with elevated triglycerides (ICD-10 - E78.2) doing better on no meds 12/13/2023 Edema of left eyelid (ICD-10 - H02.846) use cold compresses and loratidine, will continue to monitor 12/13/2023 Edema of right eyeli d (ICD-10 - H02.843) will continue to monitor 03/30/2024 Hypercholesterolemia (ICD-10 - E78.00) is going to diet and recheck in 6 months 03/30/2024 Colon cancer screeni ng (ICD-10 - Z12.11) guaiac negative 03/30/2024 Encounter for screen ing for depression (ICD-10 - Z13.31) negative screen PLAN OF TREATMENT Pending Test Test Name Order Date Electrocardiogram (EKG) 11/01/2019 Blood Urea Nitrogen 09/17/2024 Creatinine 09/17/2024 Future Test Test Name Order Date Blood Urea Nitrogen 09/29/2024 Lipid Panel 09/29/2024 Next Appt Details Provider Name:Ayden Crum ier, 03/26/2025 07:00:00 AM, [address] [place] [address], [address], [phone], Provider Name:Ayden Crum ier, 04/08/2025 09:30:00 AM, [address] [place] [address], [address], [phone], Insurance Providers Payer Name Payer Address Payer Phone Subscriber Number Group Number Insured Name Patient Relationship to Insured Coverage Start Date Coverage End Date [employer] [address] [place] [address] [id number] Nish Miner i Self - patient is the insured [employer] OF [employer] [address] [place] [address] [id number] Nish Miner i Self - patient is the insured MEDICAL (GENERAL) HISTORY Medical History History ICD Code colonoscopy 2009 had in 2019 adenoma due in 5 yeasrs atypical prostate cells on biopsy 2010 Elevated PSA R97.20 Cervical neuropathy G54.2
--- OUTSIDE RECORDS SUMMARY | 2024-09-17 15:30 | XMS_ITS ---
Author Organization Ayden Ford MD Address [address] [place] [phone] Care Team Providers Care Side Door Worker Name Role Phone Ayden Ford Primary Care Provider ALLERGIES No Known Allergies REASON FOR VISIT annual visit/ must see 03-30-2024 MEDICATIONS Medication SIG (Take, Route, Fr equency, Duration) Notes Start Date End Date Status Tadalafil 20 MG 1 tablet Orally once a day as needed for 30 day(s) 11/01/2019 Not-Taking Ibuprofen 200 MG 1 tablet with food o r milk as needed Orally hs Active Indomethacin 50 MG 1 capsule with food or milk Orally Three times a day for 20 days 06/03/2020 Not-Taking SOCIAL HISTORY Tobacco Use: Social History Observation [...] W/U Status Risk SNOMED Code Notes Problem Hypercholesterolemia (E78.00) Active confirmed 77749889 VITAL SIGNS BMI 25.98 kg/m2 03/30/2024 Blood pressure systolic 106 mm Hg 03/30/20 Blood pressure diastolic 60 mm Hg 024 Height 66 in 03/30/2024 Weight 161 lbs 03/30/2024 weight is down 4 pounds [facility] 12-13-23 Encounters Encounter Location Date Provider Diagnosis Ayden Ford MD [address] [place] [address] Drive [address] [place], [place] [phone] 03/30/2024 Ayden Ford Elevated PSA R97.2 ; Elevated BUN R79.9 ; Hypercholesterolemia E78.00 ; Colon cancer screening Z12.11 and Encounter for screening for depression Z13.31 ASSESSMENTS Encounter Date Diagnosis Assessment Notes Treatment Notes Treatment Clinical Notes 03/30/2024 Elevated PSA (ICD-10 - R97.2) referral back to urology 03/30/2024 Elevated BUN (ICD-10 - R79.9) 03/30/2024 Hypercholesterolemia (ICD-10 - E78.00) is going to diet and recheck in 6 months 03/30/2024 Colon cancer screeni ng (ICD-10 - Z12.11) guaiac negative 03/30/2024 Encounter for screen ing for depression (ICD-10 - Z13.31) negative screen PLAN OF TREATMENT Treatment Notes Assessment Notes Elevated PSA referral back to uro logy Hypercholesterolemia is going to diet an d recheck in 6 months Colon cancer screening guaiac negative Encounter for screening for depression n egative screen Future Test Test Name Order Date Blood Urea Nitrogen 09/29/2024 Lipid Panel 09/29/2024 Next Appt Details Follow Up: 6 Months, Reason: Provider Name:Ayden briceño, 03/26/2025 07:00:00 AM, [address] [place] [address], [address], [place], [place], [phone], Provider Name:Ayden briceño, 04/08/2025 09:30:00 AM, [address] [place] [address], [address], [place], [place], [phone], Progress Notes * Examination Category Sub-Category Detail Notes General Examination GENERAL APPEARANCE: alert, w ell hydrated, in no distress , male HEAD: normocephalic EYES: BOTH EYES, normal EARS: BOTH EARS, normal THROAT: no erythema, pharynx normal NECK/THYROID: no cervical lymphade nopathy, no carotid bruit HEART: regular rate and rhy thm, no murmurs, rubs, gallops LUNGS: no wheezes, rales, r honchi, good air movement, clear to auscultation bilaterally ABDOMEN: soft, nontender, non distended, no rebound tenderness, no organomegaly SKIN: good turgor MALE GENITOURINARY: circumcised, no test icular mass, testes descended bilaterally RECTAL EXAM: stool guaiac negativ e, no masses palpable History and Physical Notes * HPI (History of Present Illness) Category Sub-Category Detail Notes Depression Screening PHQ-9 Little inte rest or pleasure in doing things: Not at all Feeling down, depressed, or hopeless: No t at all Trouble falling or staying asleep, or sl eeping too much: Not at all Feeling tired or having little energy: N ot at all Poor appetite or overeating: Not at all Feeling bad about yourself o r that you are a failure, or have let yourself or your family down: Not at all Trouble concentrating on thi ngs, such as reading the newspaper or watching television: Not at all Moving or speaking so slowly that other people could have noticed; or the opposite, being so fidgety or restless that you have been moving around a lot more than usual: Not at all Thoughts that you would be b zee off or of hurting yourself in some way: Not at all Total Score: 0 Interpretation and Intervention Depression Law young Findings: Negative Follow-Up for Depression: : review of PH Q-9 found negative result, no follow-up needed SDOH Questions SDOH Questions In the past year have you been worried about losing housing?: No In the past year have you or any family members you live with been unable to get any of the following when it was really needed? Check all that apply:: None Fall Risk History Have you had any falls with injury in the past year?: No Have you had two or more falls in the st year?: No Communication Needs Communication Needs Does the patient have a hearing impairment: No Does the patient have a vision impairmen t?: Yes ?If yes, what is the vision impairment?: Glasses Does the patient have a cognition impair ment?: No
[2024-09-17 15:42] LABS: Blood Urea Nitrogen 18 mg/dL (9-16); Estimated Glomerular Filt Rate > 60
== END 2024-09-17 15:28 | disposition home or self-care (01) ==
LOC: HO.LNP 15:27
PROVIDERS: Visit Provider Internal Medicine
DX: R79.9 Abnormal finding of blood chemistry, unspecified (principal)
CPT/HCPCS: 82565; 84520

== ENCOUNTER 2025-03-26 10:34 | Outpatient (REF) | payer MEDICARE, SELFPAY ==
[2025-03-26 10:41] LABS: MANUAL DIFF FLAG NO
[2025-03-26 11:08] LABS: Basophils Absolute Auto 0.1 X10*3/uL (0.0-0.2); Basophils Percent Auto 0.7 % (0-2); Eosinophils Absolute Auto 0.3 X10*3/uL (0.0-0.4); Eosinophils Percent Auto 3.4 % (0-4); Hematocrit 45.3 % (42.0-52.0); Hemoglobin 15.6 g/dl (14.0-18.0); Imm Gran Abs Auto 0.02 X10*3/uL (0.00-0.03); Imm Gran Pct Auto 0.2 % (0.0-0.4); Lymphocytes Absolute Auto 3.1 X10*3/uL (1.2-4.9); Lymphocytes Percent Auto 38.1 % (20-40); Mean Corpuscular HGB Conc 34.4 g/dl (31.0-36.0); Mean Corpuscular Volume 90.1 fL (80.0-98.0); Mean Platelet Volume 10.6 fL (9.4-12.4); Monocytes Absolute Auto 0.8 X10*3/uL (0.1-1.2); Monocytes Percent Auto 9.9 % (2-11); Neutrophils Absolute Auto 3.9 x10*3/uL (2.0-8.3); Neutrophils Percent Auto 47.7 % (45-73); Platelet Count 204 X10*3/uL (160-400); Red Blood Count 5.03 X10*6/uL (4.60-5.80); Red Cell Distribution Width 13.5 % (11.0-16.0); White Blood Count 8.2 X10*3/uL (4.8-10.8)
[2025-03-26 11:09] LABS: Appearance Urine Clear; Color Urine Yellow; Glucose Urine UA Negative (Negative); Leukocyte Esterase Urine Negative (Negative); Nitrite Urine Negative (Negative); PH 5.5 (5.0-9.0); Specific Gravity - Urine >= 1.030 (1.005-1.025); Urine Blood Negative (Negative); Urine Ketones Negative (Negative); Urine Protein Negative (Neg-Trace)
[2025-03-26 11:15] LABS: Bacteria Urine None Seen (None Seen); Hyaline Casts Urine 0-2 /LPF (0-2); RBC Urine 0-2 /HPF (0-2); Squamous Epithelial Cell Urine 0-2 /HPF (0-2); WBC Urine 0-5 /HPF (0-5)
[2025-03-26 11:24] LABS: Alanine Aminotransferase 29 U/L (0-40); Albumin Level 4.3 g/dL (3.5-5.0); Alkaline Phosphatase 63 U/L (39-117); Anion Gap 11 (12-20); Aspartate Amino Transferase 33 U/L (5-37); Bilirubin Total 0.5 mg/dL (0.0-1.0); Blood Urea Nitrogen 24 mg/dL (9-16); Calcium 9.3 mg/dL (8.4-10.2); Carbon Dioxide 25 mmol/L (22-29); Chloride 111 mmol/L (96-108); Cholesterol 217 mg/dL (<200); Estimated Glomerular Filt Rate > 60; Glucose Fasting 89 mg/dL (60-99); HDL Cholesterol 33 mg/dL (>40); LDL Cholesterol Calculated 141 mg/dL (<100); Potassium 3.9 mmol/L (3.3-5.1); Sodium 143 mmol/L (135-145); Total Protein 6.6 g/dL (6.5-8.0); Triglycerides 219 mg/dL (<150)
[2025-03-26 11:45] LABS: PSA,Total (Free>4and<10) 4.94 ng/mL (0.00-4.00)
--- OUTSIDE RECORDS SUMMARY | 2025-03-26 11:50 | XMS_ITS | Clinical Summary ---
Author Organization [facility] Address [address] [place] [address] Care Team Providers Care Typing Checker Name Role Phone Unavailable Primary Care Provider Unavailabl e Source Comments PLEASE NOTE, if this patient is a minor, it may be UNLAWFUL to discuss sensitive information that is contained in these records (such as FAMILY PLANNING, MENTAL HEALTH or SUBSTANCE ABUSE) with the minor patient's parent or other person without the patient's specific authorization.[facility] Immunizations Immunization Administration Dates Next Due Moderna COVID-19 Vaccine, re d cap blue label, 12+ Primary Series 09/29/2021,01/27/2021,12/31/2020 Social History Tobacco Use Types Packs/Day Years Used Date Smoking Tobacco: Never Assessed Social Connections Answer Date Recorded Social Connections and Isolation 0 12/31/2020 Financial Resource Strain Answer Date R ecorded Financial Resource Strain 0 2020 Stress Answer Date Recorded Stress 0 12/31/2020 Physical Activity Answer Date Recorded Physical Activity 0 12/31/2020 Food Insecurity Answer Date Recorded Food 0 12/31/2020 Transportation Needs Answer Date Record ed Transportation 0 12/31/2020 Housing Stability Answer Date Recorded Housing 0 12/31/2020 Safety and Environment Answer Date Wild rded Safety 0 12/31/2020 Utilities Answer Date Recorded Utilities 0 12/31/2020 Employment Answer Date Recorded Employment 0 12/31/2020 Sex and Gender Information Value Date Recorded Sex Assigned at Not on file Legal Sex Male 10:50 AM PDT Gender Identity Not on file Sexual Orientation Not on file Plan of Treatment Health Maintenance Due Date Last Done Comments Diabetes Screening 1960 Hepatitis C Screening 1960 Lipid Screening 1960 Tobacco Screening 1960 Hypertension Screening (#1) 1976 Imm-DTaP/Tdap/Td (1 - Tdap) 1977 CT Colonography 12/26/2003 Colonoscopy 12/26/2003 Colorectal Cancer Screening 12/26/2003 FIT/gFOBT 12/26/2003 Fecal DNA 12/26/2003 Flexible Sigmoidoscopy 12/26/2003 Imm-Pneumococcal 50+ (1 of 1 - PCV) 2008 Imm-Zoster, Recombinant (2 of 2) 10/20/2021 08/25/20 21 Abdominal Aortic Aneurysm Screening 12/26/2023 Falls Prevention 12/26/2023 [id number] ( season) 2024 09/29/2021, 01/27/2021, 12/31/2020 Alcohol and Drug Screen 10/03/2024 Depression Annual Screen 10/03/2024 Imm-Influenza (Season Ended) 2025, 08/04/2020, 07/04/2020, Additional history exists Insurance [employer]
[2025-03-27 12:18] LABS: Free Prostate Spec Ag 1.9 ng/mL; Percent Free Prostate Spec Ag 42 % (calc) (>25); Prostate Specific Ag Total 4.5 ng/mL (< OR = 4.0)
== END 2025-03-26 10:35 | disposition home or self-care (01) ==
LOC: HO.LNP 10:34
PROVIDERS: Visit Provider Internal Medicine
DX: E78.2 Mixed hyperlipidemia (principal)
CPT/HCPCS: 80053; 80061; 81001; 84153; 84154; 85025

== ENCOUNTER 2025-07-09 09:56 | Outpatient (REF) | payer MEDICARE, SELFPAY ==
--- OUTSIDE RECORDS SUMMARY | 2024-09-14 04:00 | XMS_ITS ---
Author Organization Ayden Ford MD Address [address] [place], [place] [phone] Care Team Providers Care Nickel Plater Name Role Phone Ayden Ford Primary Care Provider [phone] Results Component Value Reference Range Notes Lipid Panel Reviewed date:09/14/2024 01:42:02 PM Interpretation: Performing Lab:[facility], [address] [place] [phone] Notes/Report: Triglycerides 130 <150 mg/dL Desirable Triglyceride: less than 150 mg/dL Borderline High Triglyceride 150-199 mg/dL High Triglyceride: 200-499 mg/dL Very High Triglyceride: greater than or equal to 5OO mg/dL Cholesterol 222 <200 mg/dL Desirable Cholesterol: less than 200 mg/dL Borderline High Cholesterol: 200-239 mg/dL High Cholesterol: greater than 239 mg/dL LDL Cholesterol Calculated 158 <100 mg/dL Desirable LDL: less than 100 mg/dL Near Optimal/Above Optimal LDL: 110-129 mg/dL Borderline High LDL: 130-159 mg/dL High LDL: 160-189 mg/dL Very High LDL: greater than or equal to 190 mg/dL HDL Cholesterol 38 >40 mg/dL Desirable HDL: greater than 40 mg/dL Note: This HDL assay may give artificially low results in patients with liver disease. REASON FOR VISIT lipid Encounters Encounter Location Date Provider Diagnosis Ayden Ford MD [address] [place], [place] [phone] 09/14/2024 Ayden Ford Elevated cholesterol with elevated triglycerides E78.2 and Hypercholesterolemia E78.00 Assessments Encounter Date Diagnosis (ICD Code) Assessment Notes Treatment Notes Treatment Clinical Notes Section Notes 09/14/2024 Elevated cholesterol with elevated triglycerides (ICD-10 - E78.2) 09/14/2024 Hypercholesterolemia (ICD-10 - E78.00) Plan Of Treatment Next Appt Details Provider Name:Ayden briceño, 04/03/2026 07:30:00 AM, [address], [address], [place], [place], [phone], Provider Name:Ayden briceño, 04/10/2026 08:30:00 AM, [address], [address], [place], [place], [phone], Progress Notes * Bobby FERNANDEZOB: (64 yo M)Acc No.[id number]:09/14/2024 Progress Note Patient: Nish VENCES Provider: Gary Ford MD :1960 A ge:63 Y S ex:Male Date:09/14/2024 Address:[address] [place], [place] [id number] Subjective: * Chief Complaints: * 1 . Lipid. * Medical History: Objective: * Vitals: Assessment: * Assessment: 1. E levated cholesterol with elevated triglycerides - E78.2 (Primary) 2 . H ypercholesterolemia - E78.00 Plan: * Treatment: 2. H ypercholesterolemia L AB: Lipid Panel (Collection Date & Time - 09/14/2024 08:00 AM) * Procedure Codes: 3 6415 VENIPUNCT, ROUTINE* * * The named appointment provid er may or may not be the originator of this progress note, and it is not deemed complete until electronically signed by the appointment provider. Sign off status: Pending * Provider: Gary Ford MD Date: 1 11/15/2023 Generated for Janene valencia/Maggi/Trishitting on: 1 11:36 AM EDT
--- OUTSIDE RECORDS SUMMARY | 2024-09-17 09:45 | XMS_ITS ---
Author Organization Ayden Ford MD Address [address] [place] [phone] Care Team Providers Care Beeswax Bleacher Name Role Phone Ayden Ford Primary Care Provider Allergies No Known Allergies Results Component Value Reference Range Notes Blood Urea Nitrogen Reviewed date:09/20/2024 12:45:30 PM Interpretation: Performing Lab:[address] [id number] Notes/Report: Blood Urea Nitrogen 18 9-16 mg/dL Creatinine Reviewed date:09/17/2024 05:00:15 PM Interpretation: Performing Lab:[address] [phone] Notes/Report: Creatinine 1.15 0.5-1.4 mg/dL Estimated Glomerular Filt Rate > 60 Chronic Kidney Disease: Estimated GFR < 60 mL/min/1.73m2 Severe Kidney Disease: Estimated GFR < 15 mL/min/1.73m2 REASON FOR VISIT 6 month Medications Medication SIG (Take, Route, Fr equency, Duration) Notes Start Date End Date Status Ibuprofen 200 MG 1 tablet with food o r milk as needed Orally hs Active Indomethacin 50 MG 1 capsule with food or milk Orally Three times a day for 20 days 06/03/2020 Not-Taking Tadalafil 20 MG 1 tablet Orally once a day as needed for 30 day(s) 11/01/2019 Not-Taking Vital Signs Blood pressure systolic 122 mm Hg 09/17/20 24 Blood pressure diastolic 58 mm Hg 024 Height 66 in 09/17/2024 Weight 160 lbs 09/17/2024 BMI 25.82 kg/m2 09/17/2024 Encounters Encounter Location Date Provider Diagnosis Ayden Ford MD [address] [place] [address] [place] [phone] 09/17/2024 Ayden Ford Elevated cholesterol with elevated triglycerides E78.2 and Elevated BUN R79.9 Assessments Encounter Date Diagnosis (ICD Code) Assessment Notes Treatment Notes Treatment Clinical Notes Section Notes 09/17/2024 Elevated cholesterol with elevated triglycerides (ICD-10 - E78.2) doing better on no meds 09/17/2024 Elevated BUN (ICD-10 - R79.9) pending labs, will contnue to monitor Plan Of Treatment Treatment Notes Assessment Notes Elevated cholesterol with el evated triglycerides doing better on no meds Elevated BUN pending labs, will c ontnue to monitor Next Appt Details Provider Name:Ayden briceño, 04/03/2026 07:30:00 AM, [address] [place] [address], Suite [facility], [place], [place], [phone], Provider Name:Ayden briceño, 04/10/2026 08:30:00 AM, [address] [place] [address], Suite [facility], [place], [place], [phone], Progress Notes * Bobby FERNANDEZOB: (63 yo M)Acc No.[id number]:09/17/2024 Progress Notes Patient: Nish Patterson Provider: Gary Ford MD :1960 A ge:63 Y S ex:Male Date:09/17/2024 Address:[address] [place] [address] [id number] Subjective: * Chief Complaints: * 6 month * HPI: S ymptom(s): patient is a 63 to male here for 6 month follow up visit, doing well. * ROS: G eneral/Constitutional: Denies C hills. D enies F atigue. D enies F ever. D enies H eadache. E NT: Patient denies d ecreased sense of smell , any loss of taste , sore throat. D enies S ore throat. R espiratory: Denies C ough. D enies S hortness of breath at rest. D enies S hortness of breath with exertion. G astrointestinal: Denies D iarrhea. D enies N ausea. M usculoskeletal: Patient denies m uscle aches. P eripheral Vascular: Patient denies r ed and blue toes. * Medical History: * Surgical History: * Hospitalization/Major Diagno stic Procedure: * Medications: T akingIbuprofen 200 MG Tablet 1 tablet with food or milk as needed Orally hsTaking Ibuprofen 200 MG Tablet 1 tablet with food or milk as needed Orally hsNot-Taking/PRNIndomethacin 50 MG Capsule 1 capsule with food or milk Orally Three times a dayTadalafil 20 MG Tablet 1 tablet Orally once a day as neededMedication List reviewed and reconciled with the patientNot-Taking/PRN Indomethacin 50 MG Capsule 1 capsule with food or milk Orally Three times a dayNot-Taking/PRN Tadalafil 20 MG Tablet 1 tablet Orally once a day as neededMedication List reviewed and reconciled with the patient * Allergies: N .K.D.A.yes[Allergies Verified] Objective: * Vitals: H t: 66, Wt:160, BMI:25.82, BP:122/58. * P ast Orders: L ab:Lipid Panel (Order Date - 09/14/2024) (Collection Date - 09/14/2024) Value Reference Range Triglycerides 130 <150 - mg/dL Cholesterol 222 H <200 - mg/dL LDL Cholesterol Calculated 158 H <100 - mg/dL HDL Cholesterol 38 L >40 - mg/dL * Examination: G eneral Examination: GENERAL APPEARANCE: w ell developed, well nourished. HEAD: n ormocephalic. SKIN: g ood turgor. HEART: n o murmurs, rubs, gallops , regular rate and rhythm. LUNGS: n o wheezes, rales, rhonchi , good air movement , clear to auscultation bilaterally. Assessment: * Assessment: 1. E levated cholesterol with elevated triglycerides - E78.2 (Primary) 2 . E levated BUN - R79.9 Plan: * Treatment: 2. E levated BUN L AB: Blood Urea Nitrogen ?LAB: Creatinine Notes: pending labs, will contnue to monitor?? * Procedure Codes: 3 6415 VENIPUNCT, ROUTINE* * * Sign off status: Completed true * Provider: Gary Ford MD Date: 1 11/18/2023 Generated for Varghesei annie/Maggi/eTransmitting on: 1 11:36 AM EDT History and Physical Notes * HPI (History of Present Illness) Category Sub-Category Detail Notes Category Not es Symptom(s) patient is a 63 to male here for 6 month follow up visit, doing well Examination Category Sub-Category Detail Notes Category Not es General Examination GENERAL APPEARANCE: well developed , well nourished HEAD: normocephalic HEART: no murmurs, rubs, ga llops , regular rate and rhythm LUNGS: no wheezes, rales, r honchi , good air movement , clear to auscultation bilaterally SKIN: good turgor
--- OUTSIDE RECORDS SUMMARY | 2025-03-26 03:00 | XMS_ITS ---
Author Organization Ayden Ford MD Address [address] [place], [place] [phone] Care Team Providers Care Feltmaker Name Role Phone Ayden Ford Primary Care Provider [phone] Results Component Value Reference Range Notes Complete Blood Count Auto Di ff Reviewed date:03/26/2025 05:32:08 PM Interpretation: Performing Lab:[facility], [address] [place] [phone] Notes/Report: White Blood Count 8.2 4.8-10.8 X10*3/uL Red Blood Count 5.03 4.60-5.80 X10*6/uL Hemoglobin 15.6 14.0-18.0 g/dl Hematocrit 45.3 42.0-52.0 % Mean Corpuscular Volume 90.1 80.0-98.0 fL Mean Corpuscular Hemoglobin 31.0 27.0-33.0 pg Mean Corpuscular HGB Conc 34.4 31.0-36.0 g/dl Red Cell Distribution Width 13.5 11.0-16.0 % Platelet Count 204 160-400 X10*3/uL Mean Platelet Volume 10.6 9.4-12.4 fL Neutrophils Percent Auto 47.7 45-73 % Imm Gran Pct Auto 0.2 0.0-0.4 % Lymphocytes Percent Auto 38.1 20-40 % Monocytes Percent Auto 9.9 2-11 % Eosinophils Percent Auto 3.4 0-4 % Basophils Percent Auto 0.7 0-2 % NRBC Pct Auto 0.0 0.0-0.2 /100WBC Neutrophils Absolute Auto 3.9 2.0-8.3 x10*3/u L Imm Gran Abs Auto 0.02 0.00-0.03 X10*3/uL Lymphocytes Absolute Auto 3.1 1.2-4.9 X10*3/u L Monocytes Absolute Auto 0.8 0.1-1.2 X10*3/uL Eosinophils Absolute Auto 0.3 0.0-0.4 X10*3/u L Basophils Absolute Auto 0.1 0.0-0.2 X10*3/uL NRBC Abs Auto 0.000 0.0-0.012 X10*3/uL Comprehensive [place]. Panel Fa Reviewed date:03/26/2025 12:44:30 PM Interpretation: Performing Lab:[address] [phone] Notes/Report: Sodium 143 135-145 mmol/L Potassium 3.9 3.3-5.1 mmol/L Chloride 111 96-108 mmol/L Carbon Dioxide 25 22-29 mmol/L Anion Gap 11 12-20 Blood Urea Nitrogen 24 9-16 mg/dL Creatinine 1.20 0.5-1.4 mg/dL Estimated Glomerular Filt Rate > 60 Chronic Kidney Disease: Estimated GFR < 60 mL/min/1.73m2 Severe Kidney Disease: Estimated GFR < 15 mL/min/1.73m2 Glucose Fasting 89 60-99 mg/dL Calcium 9.3 8.4-10.2 mg/dL Bilirubin Total 0.5 0.0-1.0 mg/dL Aspartate Amino Transferase 33 5-37 U/L Alanine Aminotransferase 29 0-40 U/L Total Protein 6.6 6.5-8.0 g/dL Albumin Level 4.3 3.5-5.0 g/dL Alkaline Phosphatase 63 39-117 U/L Lipid Panel Reviewed date:03/26/2025 12:27:03 PM Interpretation: Performing Lab:[facility], [address] [place] [phone] Notes/Report: Triglycerides 219 <150 mg/dL Desirable Triglyceride: less than 150 mg/dL Borderline High Triglyceride 150-199 mg/dL High Triglyceride: 200-499 mg/dL Very High Triglyceride: greater than or equal to 5OO mg/dL Cholesterol 217 <200 mg/dL Desirable Cholesterol: less than 200 mg/dL Borderline High Cholesterol: 200-239 mg/dL High Cholesterol: greater than 239 mg/dL LDL Cholesterol Calculated 141 <100 mg/dL Desirable LDL: less than 100 mg/dL Near Optimal/Above Optimal LDL: 110-129 mg/dL Borderline High LDL: 130-159 mg/dL High LDL: 160-189 mg/dL Very High LDL: greater than or equal to 190 mg/dL HDL Cholesterol 33 >40 mg/dL Desirable HDL: greater than 40 mg/dL Note: This HDL assay may give artificially low results in patients with liver disease. PSA,Total (Free>4and<10) Reviewed date:04/09/2025 11:01:05 AM Interpretation:04-08-25 Performing Lab:[facility], [address] [place] [phone] Notes/Report: PSA,Total (Free>4and<10) 4.94 0.00-4.00 ng/mL PSA methodology: Rivas Alinity i Chemiluminescent Microparticle Immunoassay (CMIA) UA ClnCatch+Micro w/rflx Cul t Reviewed date:03/26/2025 05:31:31 PM Interpretation: Performing Lab:[facility], [address] [place] [phone] Notes/Report: [id number] Urine, Clean Catch Color Urine Yellow Appearance Urine Clear PH 5.5 5.0-9.0 Glucose Urine UA Negative Negative mg/dL Urine Blood Negative Negative Specific [place] - Urine >= 1.030 1.005-1.025 Urine Protein Negative Neg-Trace mg/dL Urine Ketones Negative Negative mg/dL Nitrite Urine Negative Negative Leukocyte Esterase Urine Negative Negative RBC Urine 0-2 0-2 /HPF WBC Urine 0-5 0-5 /HPF Squamous Epithelial Cell Urine 0-2 0-2 /HPF Bacteria Urine None Seen None Seen Hyaline Casts Urine 0-2 0-2 /LPF REASON FOR VISIT yearly fasting labs Encounters Encounter Location Date Provider Diagnosis Ayden Ford MD [address] [place] [address] Drive [address] [place], [place] [phone] 03/26/2025 Ayden Ford Elevated cholesterol with elevated triglycerides E78.2 Assessments Encounter Date Diagnosis (ICD Code) Assessment Notes Treatment Notes Treatment Clinical Notes Section Notes 03/26/2025 Elevated cholesterol with elevated triglycerides (ICD-10 - E78.2) Plan Of Treatment Next Appt Details Provider Name:Ayden Crum ier, 04/03/2026 07:30:00 AM, [address], [address], [place], [place], [phone], Provider Name:Ayden Crum ier, 04/10/2026 08:30:00 AM, [address], [address], [place], [phone], Progress Notes * REBECCA BobbyOB: (64 yo M)Acc No.[id number]:03/26/2025 Progress Note Patient: Nish VENCES Provider: Gary Ford MD :1960 A ge:64 Y S ex:Male Date:03/26/2025 Address:[address] [place], [place] [address] Subjective: * Chief Complaints: * 1 . Yearly fasting labs. * Medical History: Objective: * Vitals: Assessment: * Assessment: 1. E levated cholesterol with elevated triglycerides - E78.2 (Primary) Plan: * Treatment: * Procedure Codes: 3 6415 VENIPUNCT, ROUTINE* * * The named appointment provid er may or may not be the originator of this progress note, and it is not deemed complete until electronically signed by the appointment provider. Sign off status: Pending * Provider: Gary Ford MD Date: 0 03/26/2025 Generated for Janene valencia/Maggi/Bridgett on: 1 11:36 AM EDT
--- OUTSIDE RECORDS SUMMARY | 2025-04-08 05:30 | XMS_ITS ---
Author Organization Ayden Ford MD Address [address] [place], [place] [phone] Care Team Providers Care Filling Hauler Weaving Name Role Phone Ayden Ford Primary Care Provider Allergies No Known Allergies REASON FOR VISIT annual visit/ must see PSA Medications Medication SIG (Take, Route, Fr equency, [...] as needed for 30 day(s) 11/01/2019 Not-Taking Social History Tobacco Use: Social History Observation Description Date Details (start date - stop date) Never Smoker NA - NA Tobacco Use/Smoking Question Answer Notes Patient is [...] Never (0 point) Points 2 Interpretation Negative Vital Signs Blood pressure systolic 102 mm Hg 04/08/20 25 Blood pressure diastolic 60 mm Hg 025 Height 66 in 04/08/2025 Weight 168 lbs 04/08/2025 BMI 27.11 kg/m2 04/08/2025 weight is up 8 pounds since 09-17-24 Encounters Encounter Location Date Provider Diagnosis Ayden Ford MD [address] [place] [address] [place] [phone] 04/08/2025 Ayden Ford Elevated cholesterol with elevated triglycerides E78.2 ; Elevated PSA R97.2 and Elevated BUN R79.9 Assessments Encounter Date Diagnosis (ICD Code) Assessment Notes Treatment Notes Treatment Clinical Notes Section Notes 04/08/2025 Elevated cholesterol with elevated triglycerides (ICD-10 - E78.2) doing better, pending future labs 04/08/2025 Elevated PSA (ICD-10 - R97.2) had 2 biopsies one with atypical cells. not interested in any evaluation 04/08/2025 Elevated BUN (ICD-10 - R79.9) Plan Of Treatment Treatment Notes Assessment Notes Elevated cholesterol with el evated triglycerides doing better, pending future labs Elevated PSA had 2 biopsies one w ith atypical cells. not interested in any evaluation Pending Test Test Name Order Date Blood Urea Nitrogen 04/08/2025 Creatinine 04/08/2025 Next Appt Details Follow Up: 1 Year, Reason: Provider Name:Ayden briceño, 04/03/2026 07:30:00 AM, [address] [place] [address], [address], [phone], Provider Name:Ayden briceño, 04/10/2026 08:30:00 AM, [address] [place] [address], Suite [facility], [place], [place], [phone], Progress Notes * Bobby FERNANDEZOB: 9 (64 yo M)Acc No.[id number]:04/08/2025 Progress Notes Patient: Salena CONRAD Nish Provider: Gary Ford MD :1960 A ge:64 Y S ex:Male Date:04/08/2025 Address:[address], [id number] Subjective: * Chief Complaints: * a nnual visit/ must see PSA * HPI: D epression Screening: PHQ-9 L ittle interest or pleasure in doing things N ot at all, F eeling down, depressed, or hopeless N ot at all, T rouble falling or staying asleep, or sleeping too much N ot at all, F eeling tired or having little energy N ot at all, P oor appetite or overeating N ot at all, F eeling bad about yourself or that you are a failure, or have let yourself or your family down N ot at all, T rouble concentrating on things, such as reading the newspaper or watching television N ot at all, M oving or speaking so slowly that other people could have noticed; or the opposite, being so fidgety or restless that you have been moving around a lot more than usual N ot at all, T houghts that you would be better off or of hurting yourself in some way N ot at all, T otal Score 0 . I nterpretation and Intervention D epression Screening Findings N egative, F ollow-Up for Depression : review of PHQ-9 found negative result, no follow-up needed. C ommunication Needs: Communication Needs D oes the patient have a hearing impairment N o, D oes the patient have a vision impairment? Y es, I f yes, what is the vision impairment? G lasses, D oes the patient have a cognition impairment? N o. F all Risk: History H ave you had any falls with injury in the past year? N o, H ave you had two or more falls in the past year? N o. S SEAN Questions: SDOH Questions I n the past year have you been worried about losing housing? N o, I n the past year have you or any family members you live with been unable to get any of the following when it was really needed? Check all that apply: N one. S ymptom(s): patient is a 64 yo male here for visit with review if recent labs and follow up of chronic issues. * ROS: G eneral/Constitutional: Change in appetite d enies. C hills d enies. F ever d enies. O phthalmologic: Blurred vision d enies. D ischarge d enies. P ain d enies. E NT: Decreased hearing d enies. S ore throat d enies.?Swollen glands d enies. E ndocrine: Cold intolerance d enies. E xcessive thirst d enies. H eat intolerance d enies. W eight loss d enies. R espiratory: Cough d enies. S hortness of breath at rest d enies. S hortness of breath with exertion d enies. W heezing d enies. C ardiovascular: Chest pain at rest d enies. C hest pain with exertion?denies. I rregular heartbeat d enies. S hortness of breath d enies. ? G astrointestinal: Abdominal pain d enies. C hange in bowel habits d enies. D iarrhea d enies. N ausea d enies. R ectal bleeding d enies. V omiting d enies . G enitourinary: Blood in urine d enies. D ifficulty urinating d enies. F requent urination d enies. M usculoskeletal: Painful joints d enies. W eakness d enies. ? S kin: Dry skin d enies. I tching d enies. D enies?Mole(s), changes in moles, new moles or any lesions of concern. D enies P hotosensitivity. R homero d enies. N eurologic: Dizziness d enies. F ainting d enies. H eadache?denies. * Medical History: * Surgical History: * Hospitalization/Major Diagno stic Procedure: * Family History: F ather: alive 89 yrs. M other: 52 yrs. 1 brother(s) , 3 sister(s) . 2 son(s) , 1 daughter(s) . . Father-Healthy Mother-Cirrhosis 1 brother, Denies mental health/substance abuse family history, Denies mental health/substance abuse family history, Denies mental health/substance abuse family history. * Social History: T obacco Use: T obacco Use/Smoking P atient is a n onsmoker, A dditional Findings: Tobacco Non-User C urrent non-smoker, currently using no form of tobacco. D rugs/Alcohol: A lcohol Screen D id you have a drink containing alcohol in the past year? Y es, H ow often did you have a drink containing alcohol in the past year? 2 to 4 times a month (2 points), H ow many drinks did you have on a typical day when you were drinking in the past year? 1 or 2 drinks (0 point), H ow often did you have 6 or more drinks on one occasion in the past year? N ever (0 point), P oints 2 , I nterpretation N egative. M iscellaneous: C affeine: yes, frequency:, 1-2 cups per day. Children: yes. Community involvements: no. Exercise: no. Housing: owning. Living with: spouse. Marital status: . Occupation: works full-time. Pets: dog x1. Travel outside of the [place]: no. * Medications: T akingIbuprofen 200 MG Tablet 1 tablet with food or milk as needed Orally hs Taking Ibuprofen 200 MG Tablet 1 tablet with food or milk as needed Orally hs Not-Taking/PRNIndomethacin 50 MG Capsule 1 capsule with food or milk Orally Three times a day Tadalafil 20 MG Tablet 1 tablet Orally once a day as needed Medication List reviewed and reconciled with the patientNot-Taking/PRN Indomethacin 50 MG Capsule 1 capsule with food or milk Orally Three times a day Not-Taking/PRN Tadalafil 20 MG Tablet 1 tablet Orally once a day as needed Medication List reviewed and reconciled with the patient * Allergies: N .K.D.A.yes[Allergies Verified] Objective: * Vitals: H t: 66, Wt: 168, BMI:27.11, BP:102/60, Wt-k.2. weight is up 8 pounds since 09-17-24. * P ast Orders: L ab:UA ClnCatch+Micro w/rflx Cult (Order Date - 03/26/2025) (Collection Date & Time - 03/26/2025 07:00 AM) Value Reference Range Color Urine Yellow - Appearance Urine Clear - PH 5.5 5.0-9.0 - Glucose Urine UA Negative Negative - mg/dL Urine Blood Negative Negative - Specific [place] - Urine >= 1.030 H 1.005-1.025 - Urine Protein Negative Neg-Trace - mg/dL Urine Ketones Negative Negative - mg/dL Nitrite Urine Negative Negative - Leukocyte Esterase Urine Negative Negative - RBC Urine 0-2 0-2 - /HPF WBC Urine 0-5 0-5 - /HPF Squamous Epithelial Cell Urine 0-2 0-2 - /HP F Bacteria Urine None Seen None Seen - Hyaline Casts Urine 0-2 0-2 - /LPF L ab:PSA Free and Total (Order Date - 03/26/2025) (Collection Date & Time - 03/26/2025 11:45 AM) Value Reference Range Prostate Specific Ag Total 4.5 A < OR = 4.0 - ng/mL Percent Free Prostate Spec Ag 42 >25 - % (c alc) Free Prostate Spec Ag 1.9 - ng/mL L ab:Complete Blood Count Auto Diff (Order Date - 03/26/2025) (Collection Date & Time - 03/26/2025 07:00 AM) Value Reference Range White Blood Count 8.2 4.8-10.8 - X10*3/uL Red Blood Count 5.03 4.60-5.80 - X10*6/uL Hemoglobin 15.6 14.0-18.0 - g/dl Hematocrit 45.3 42.0-52.0 - % Mean Corpuscular Volume 90.1 80.0-98.0 - fL Mean Corpuscular Hemoglobin 31.0 27.0-33.0 - pg Mean Corpuscular HGB Conc 34.4 31.0-36.0 - g/ dl Red Cell Distribution Width 13.5 11.0-16.0 - % Platelet Count 204 160-400 - X10*3/uL Mean Platelet Volume 10.6 9.4-12.4 - fL Neutrophils Percent Auto 47.7 45-73 - % Imm Gran Pct Auto 0.2 0.0-0.4 - % Lymphocytes Percent Auto 38.1 20-40 - % Monocytes Percent Auto 9.9 2-11 - % Eosinophils Percent Auto 3.4 0-4 - % Basophils Percent Auto 0.7 0-2 - % NRBC Pct Auto 0.0 0.0-0.2 - /100WBC Neutrophils Absolute Auto 3.9 2.0-8.3 - x10* 3/uL Imm Gran Abs Auto 0.02 0.00-0.03 - X10*3/uL Lymphocytes Absolute Auto 3.1 1.2-4.9 - X10* 3/uL Monocytes Absolute Auto 0.8 0.1-1.2 - X10*3/ uL Eosinophils Absolute Auto 0.3 0.0-0.4 - X10* 3/uL Basophils Absolute Auto 0.1 0.0-0.2 - X10*3/ uL NRBC Abs Auto 0.000 0.0-0.012 - X10*3/uL L ab:Comprehensive [place]. Panel Fast (Order Date - 03/26/2025) (Collection Date & Time - 03/26/2025 07:00 AM) Value Reference Range Sodium 143 135-145 - mmol/L Bilirubin Total 0.5 0.0-1.0 - mg/dL Aspartate Amino Transferase 33 5-37 - U/L Alanine Aminotransferase 29 0-40 - U/L Total Protein 6.6 6.5-8.0 - g/dL Albumin Level 4.3 3.5-5.0 - g/dL Alkaline Phosphatase 63 39-117 - U/L Potassium 3.9 3.3-5.1 - mmol/L Chloride 111 H 96-108 - mmol/L Carbon Dioxide 25 22-29 - mmol/L Anion Gap 11 L 12-20 - Blood Urea Nitrogen 24 H 9-16 - mg/dL Creatinine 1.20 0.5-1.4 - mg/dL Estimated Glomerular Filt Rate > 60 - Glucose Fasting 89 60-99 - mg/dL Calcium 9.3 8.4-10.2 - mg/dL L ab:Lipid Panel (Order Date - 03/26/2025) (Collection Date & Time - 03/26/2025 07:00 AM) Value Reference Range Triglycerides 219 H <150 - mg/dL Cholesterol 217 H <200 - mg/dL LDL Cholesterol Calculated 141 H <100 - mg/dL HDL Cholesterol 33 L >40 - mg/dL * Examination: G eneral Examination: GENERAL APPEARANCE: w ell developed, well nourished, in no acute distress. HEAD: n ormocephalic, atraumatic. EYES: p upils equal, round, reactive to light and accommodation, sclera non-icteric. EARS: n ormal. ORAL CAVITY: m ucosa moist. THROAT: c lear. NECK/THYROID: n sandra supple, full range of motion, no cervical lymphadenopathy, no bruits. SKIN: w arm and dry, no suspicious lesions. HEART: r egular rate and rhythm, S1, S2 normal, no murmurs.? LUNGS: c lear to auscultation bilaterally. ABDOMEN: s oft, nontender, nondistended, bowel sounds present, normal, no organomegaly , no masses palpable. RECTAL EXAM: n ormal tone, no external hemorrhoids, no masses palpable, prostate normal, no stool but is getting colonoscopy in july. MALE GENITOURINARY: c ircumcised, no testicular mass, testes descended bilaterally. EXTREMITIES: n o clubbing, cyanosis, or edema. NEUROLOGIC: n onfocal, motor strength normal upper and lower extremities, sensory exam intact. Assessment: * Assessment: 1. E levated cholesterol with elevated triglycerides - E78.2 (Primary) 2 . E levated PSA - R97.2 3 . E levated BUN - R79.9 Plan: * Treatment: 2. E levated PSA Notes: had 2 biopsies one with atypical cells. not interested in any evaluation * Procedure Codes: * Follow Up: 1 Year * * Sign off status: Completed true * Provider: Gary Ford MD Date: 0 04/08/2025 Generated for Janene valencia/Maggi/Trishitting on: 1 11:36 AM EDT History and Physical Notes * HPI (History of Present Illness) Category Sub-Category Detail Notes Category Not es Symptom(s) patient is a 64 yo male here for visit with review if recent labs and follow up of chronic issues Depression Screening PHQ-9 Little inte rest or [...] Have you had any falls with injury i n the past year?: No Have you had two or more falls in the year?: No Communication Needs Communication Needs Does the patient have a hearing impairment: No Does the patient have a vision impairmen t?: Yes If yes, what is the vision impairment?: Glasses Does the patient have a cognition impair ment?: No Examination Category Sub-Category Detail Notes Category Not es General Examination GENERAL APPEARANCE: well dev eloped, well nourished, in no acute distress HEAD: normocephalic, atrau matic EYES: pupils equal, round, reactive to light and accommodation, sclera non-icteric EARS: normal THROAT: clear NECK/THYROID: neck supple, full ra nge of motion, no cervical lymphadenopathy, no bruits HEART: regular rate and rhy thm, S1, S2 normal, no murmurs LUNGS: clear to auscultatio n bilaterally ABDOMEN: soft, nontender, non distended, bowel sounds present, normal, no organomegaly , no masses palpable NEUROLOGIC: nonfocal, motor stre ngth normal upper and lower extremities, sensory exam intact SKIN: warm and dry, no lyudmila picious lesions EXTREMITIES: no clubbing, cyanosi s, or edema MALE GENITOURINARY: circumcised, no test icular mass, testes descended bilaterally RECTAL EXAM: normal tone, no exte rnal hemorrhoids, no masses palpable, prostate normal, no stool but is getting colonoscopy in july ORAL CAVITY: mucosa moist
--- OUTSIDE RECORDS SUMMARY | 2025-07-09 04:00 | XMS_ITS ---
Author Organization Ayden Ford MD Address [address] [place] [phone] Care Team Providers Care Concaver Name Role Phone Ayden Ford Primary Care Provider Results Component Value Reference Range Notes Blood Urea Nitrogen (Not yet reviewed by provider) Interpretation: Performing Lab:[facility], [address] [place] [phone] Notes/Report: Blood Urea Nitrogen 19 9-16 mg/dL Creatinine (Not yet reviewed by provider) Interpretation: Performing Lab:[facility], [address] [place] [phone] Notes/Report: Creatinine 1.14 0.5-1.4 mg/dL Estimated Glomerular Filt Rate > 60 Chronic Kidney Disease: Estimated GFR < 60 mL/min/1.73m2 Severe Kidney Disease: Estimated GFR < 15 mL/min/1.73m2 REASON FOR VISIT BUN and CREATININE Immunizations Vaccine Route Administration Date Status Comme nts Fluarix Quadrivalent - 150 IM Intramuscular 07/09/2025 Adm inistered Encounters Encounter Location Date Provider Diagnosis Ayden Ford MD [address] [place] [phone] 07/09/2025 Ayden Ford Elevated cholesterol with elevated triglycerides E78.2 and Encounter for administration of vaccine Z23 Assessments Encounter Date Diagnosis (ICD Code) Assessment Notes Treatment Notes Treatment Clinical Notes Section Notes 07/09/2025 Elevated cholesterol with elevated triglycerides (ICD-10 - E78.2) 07/09/2025 Encounter for administration of vaccine (ICD-10 - Z23) Plan Of Treatment Pending Test Test Name Order Date Blood Urea Nitrogen 07/09/2025 Creatinine 07/09/2025 Next Appt Details Provider Name:Ayden Crum ier, 04/03/2026 07:30:00 AM, [address] [place] [address], [address], [place], [place], [phone], Provider Name:Ayden Crum ier, 04/10/2026 08:30:00 AM, [address] [place] [address], [address], [place], [place], [phone], Progress Notes * Bobby FERNANDEZOB: 9 (64 yo M)Acc No.[id number]:07/09/2025 Progress Note Patient: Nish VENCES Provider: Gary Ford MD :1960 A ge:64 Y S ex:Male Date:07/09/2025 Address[address] [place], [place] [id number] Subjective: * Chief Complaints: * 1 . BUN and CREATININE. * Medical History: Objective: * Vitals: Assessment: * Assessment: 1. E levated cholesterol with elevated triglycerides - E78.2 2 . E ncounter for administration of vaccine - Z23 Plan: * Treatment: * Immunizations: Fluarix Quadrivalent - 150 : 0.5 mL (Dose No:1) (Route: Intramuscular) given by Dunia Lawson , Office Staff on Left Deltoid * Procedure Codes: 3 6415 VENIPUNCT, ROUTINE*, 86479 FLU VACCINE NO PRESERV 3 & >, G0008 ADMN FLU VAC NO FEE SCHED SAME DAY * * The named appointment provid er may or may not be the originator of this progress note, and it is not deemed complete until electronically signed by the appointment provider. Sign off status: Pending * Provider: Gary Ford MD Date: 1 Generated for Janene valencia/Maggi/Bridgett on: 1 11:37 AM EDT
[2025-07-09 10:35] LABS: Blood Urea Nitrogen 19 mg/dL (9-16); Estimated Glomerular Filt Rate > 60
--- OUTSIDE RECORDS SUMMARY | 2025-07-09 11:36 | XMS_ITS | Patient Health Record ---
Author Organization [facility] Address [address] [place] [phone] Care Team Providers Care Circular Gang Saw Operator Name Role Phone Ayden Ford MD Primary Care Provider Raudel May Unavailable [phone] Reason For Referral No Information Medications Medication SIG (Take, Route, Frequency, Duration) Notes Start Date End Date Status Cialis Active ibuprofen when needed Active Immunizations Vaccine Route Administration Date Status Comme nts Influenza Unknown 08/03/2019 Administered Social History Tobacco Use: Social History Observation Description Date Details (start date - stop date) Never Smoker NA - NA Tobacco Use/Smoking Question Answer Notes Patient is a nonsmoker Alcohol Screen Question Answer Notes Did you have a drink contain ing alcohol in the past year? Yes How often did you have a dri nk containing alcohol in the past year? Monthly or less (1 point) How many drinks did you have on a typical day when you were drinking in the past year? 1 or 2 drinks (0 point) How often did you have 6 or more drinks on one occasion in the past year? Never (0 point) Points 1 Interpretation Negative Section Notes: Nonsmoker; occ. EtOH His is in the midst of treatments for esophageal cancer as of the 05/13/2020 office visit. Problems Problem Type SNOMED Code ICD Code Onset Dates Problem Status W/U Status Risk Notes Problem [id number] Encounter for screening for malignant neoplasm of colon (Z12.11) Active confirmed Problem Cough (55569142) Cough (R05) Active confirmed Problem [id number] Preprocedural examination (Z01.818) Active confirmed Plan Of Treatment Pending Test Test Name Order Date XR CHEST 2 VIEW PA & LAT 07/15/2020 Future Test Test Name Order Date COLONOSCOPY 05/13/2020 Next Appt Details Provider Name:Raudel Casey , 10/31/2025 10:00:00 AM, [address] [facility], [address], [place], [phone], Insurance Providers Payer Name Payer Address Payer Phone Subscriber Number Group Number Insured Name Patient Relationship to Insured Coverage Start Date Coverage End Date [facility] [address] [place], [place] [id number] MARIKA LUNDBERG Self - patient is the insured Medical (General) History Medical History History ICD Code Denies [place],DM,CVA,Lung disease,renal dise ase Neg. screening colonoscopy in 07/2010 Surgical History Surgery Date(Month/Year) right knee MCL 2010 tonsillectomy age 3
--- OUTSIDE RECORDS SUMMARY | 2025-07-09 11:36 | XMS_ITS | Clinical Summary ---
Author Organization [facility] Address [address] [place] [address] Care Team Providers Care Air Commodore Name Role Phone Unavailable Primary Care Provider [...] Aortic Aneurysm Screening 12/26/2023 Falls Prevention 12/26/2023 Alcohol and Drug Screen 10/03/2024 Depression Annual Screen 10/03/2024 [id number] (4 - 2024- season) 2025 09/29/2021, 01/27/2021, 12/31/2020 Imm-Influenza (#1) 2025 07/18/2021, 1 10/04/2019, 07/04/2020, Additional history exists Insurance [employer]
--- OUTSIDE RECORDS SUMMARY | 2025-07-09 11:37 | XMS_ITS | Patient Health Record ---
Author Organization Ayden Ford MD Address [address] [place], [place] [id number] Care Team Providers Care Youth Program Director Name Role Phone Ayden Ford Primary Care Provider Allergies No Known Allergies Results Component Value Reference Range Notes Lipid Panel Reviewed date:09/14/2024 01:42:02 PM Interpretation: Performing Lab:[facility], [address] [place] [phone] Notes/Report: Triglycerides 130 <150 mg/dL Desirable Triglyceride: [...] low results in patients with liver disease. Complete Blood Count Auto Di ff Reviewed date:03/26/2025 05:32:08 PM Interpretation: Performing Lab:[facility], [address] [place] [phone] Notes/Report: White Blood Count 8.2 4.8-10.8 X10*3/uL [...] NRBC Abs Auto 0.000 0.0-0.012 X10*3/uL Comprehensive [place]. Panel Fa st Reviewed date:03/26/2025 12:44:30 PM Interpretation: Performing Lab:[facility], [address] [place] [phone] Notes/Report: Sodium 143 135-145 mmol/L Potassium 3.9 [...] Panel Reviewed date:03/26/2025 12:27:03 PM Interpretation: Performing Lab:[address] [phone] Notes/Report: Triglycerides 219 <150 mg/dL Desirable Triglyceride: [...] (Free>4and<10) Reviewed date:04/09/2025 11:01:05 AM Interpretation:04-08-25 Performing Lab:[address] [phone] Notes/Report: PSA,Total (Free>4and<10) 4.94 0.00-4.00 ng/mL PSA methodology: Rivas Alinity i Chemiluminescent Microparticle Immunoassay (CMIA) UA ClnCatch+Micro w/rflx Cul t Reviewed date:03/26/2025 05:31:31 PM Interpretation: Performing Lab:[facility], [address] [place] [phone] Notes/Report: [id number] Urine, Clean Catch Color Urine Yellow Appearance Urine Clear PH 5.5 5.0-9.0 Glucose Urine UA Negative Negative mg/dL Urine Blood Negative Negative Specific [place] - Urine >= 1.030 1.005-1.025 Urine Protein Negative Neg-Trace mg/dL Urine Ketones Negative Negative mg/dL Nitrite Urine Negative Negative Leukocyte Esterase Urine Negative Negative RBC Urine 0-2 0-2 /HPF WBC Urine 0-5 0-5 /HPF Squamous Epithelial Cell Urine 0-2 0-2 /HPF Bacteria Urine None Seen None Seen Hyaline Casts Urine 0-2 0-2 /LPF Blood Urea Nitrogen (Not ye t reviewed by provider) Interpretation: Performing Lab:[facility], [address] [place] [phone] Notes/Report: Blood Urea Nitrogen 19 9-16 mg/dL Creatinine (Not yet reviewed by provider) Interpretation: Performing Lab:[facility], [address] [place] [phone] Notes/Report: Creatinine 1.14 0.5-1.4 mg/dL Estimated Glomerular Filt Rate > 60 Chronic Kidney Disease: Estimated GFR < 60 mL/min/1.73m2 Severe Kidney Disease: Estimated GFR < 15 mL/min/1.73m2 Blood Urea Nitrogen Reviewed date:09/20/2024 12:45:30 PM Interpretation: Performing Lab:[facility], [address] [place] [phone] Notes/Report: Blood Urea Nitrogen 18 9-16 mg/dL Creatinine Reviewed date:09/17/2024 05:00:15 PM Interpretation: Performing Lab:[facility], [address] [place] [phone] Notes/Report: Creatinine 1.15 0.5-1.4 mg/dL Estimated Glomerular Filt Rate > 60 Chronic Kidney Disease: Estimated GFR < 60 mL/min/1.73m2 Severe Kidney Disease: Estimated GFR < 15 mL/min/1.73m2 Hold Gold Reviewed date:09/14/2024 01:27:23 PM Interpretation: Performing Lab:[facility], [address] [place] [phone] Notes/Report: Yuni Crocker See Note Specimen held untested for 24 hours; Call to request Chemistry testing. PSA Free and Total Reviewed date:03/27/2025 07:42:44 PM Interpretation: Performing Lab:[facility], [address] [place] [phone] Notes/Report: Prostate Specific Ag Total 4.5 < OR = 4.0 ng/ mL Percent Free Prostate Spec Ag 42 >25 % (calc ) PSA(ng/mL) Free PSA(%) Estimated(x) Probability of Cancer(as%) 0-2.5 (*) Approx. 1 2.6-4.0(1) 0-27(2) 24(3) 4.1-10(4) 0-10 56 11-15 28 16-20 20 21-25 16 >or =26 8 >10(+) N/A >50 References:(1)Karen et al.:Urology 60: 469-474 (2001) (2)Janeona et al.:J.Urol 168: 922-925 (2001) Free PSA(%) Sensitivity(%) Specificity(%) < or = 25 85 19 < or = 30 93 9 (3)Catalona et al.:ZACK 277: 3017-0368 (1996) (4)Catalona et al.:ZACK 279: 1640-7697 (1997) (x)These estimates vary with age, ethnicity, [...] mind. PSA was performed using the Richard Ola Immunoassay method. Values obtained from different assay methods cannot be used interchangeably. PSA levels, regardless of value, should not be interpreted as absolute evidence of the presence or absence of disease. THIS TEST WAS PERFORMED AT: [facility] [address] [place] [phone] BERTA MONTANA MD Free Prostate Spec Ag 1.9 Reason For Referral No Information Medications Medication SIG (Take, Route, Fr equency, [...] as needed for 30 day(s) 11/01/2019 Not-Taking Immunizations Vaccine Route Administration Date Status Comme nts Tetanus Unknown 05/15/2009 Administered Flu Vaccine IM Intramuscular 07/03/2014 Administered [facility] Flu Vaccine IM Intramuscular 07/03/2015 Administered pt re cieved the vaccine at the [facility] in [place]. Flu Vaccine IM Intramuscular 07/15/2016 Administered pt wa s given the vaccine at [facility] in [place]. Flu Vaccine Unknown 07/04/2017 Administered at work Flu Vaccine IM Intramuscular 07/09/2018 Administered pt wa s given the vaccine at [facility] in [place], [place] Fluarix Quadrivalent IM Intramuscular 07/20/2019 Administe glen pt was given the vaccine at [facility] in [place]. Fluarix Quadrivalent Unknown 07/04/2020 Administered At work Fluarix Quadrivalent Unknown 07/15/2021 Administered At work SARS-COV-2 Moderna Unknown 12/31/2020 Administered SARS-COV-2 Moderna Unknown 01/27/2021 Administered Fluarix Quadrivalent Unknown 07/23/2022 Administered [facility] Fluarix Quadrivalent Unknown 08/17/2023 Administered [facility] Fluarix Quadrivalent - 150 IM Intramuscular 07/09/2025 Administered DECLINED, FLU Unknown 07/02/2014 Refused PPSV23 (Pnemovax) Unknown 08/19/2015 Refused Social History Tobacco Use: Social History Observation [...] Never (0 point) Points 2 Interpretation Negative Problems Problem Type SNOMED Code ICD Code Onset Dates Problem Status W/U Status Risk Notes Problem Elevated PSA (512581353) Elevated PSA (R97.2) Active confirmed Problem 369978526 Low HDL (under 4 0) (E78.6) Active confirmed Problem 418816739 Elevated cholest gabo with elevated triglycerides (E78.2) Active confirmed Problem 053397420 Vasculogenic ere ctile dysfunction, unspecified vasculogenic erectile dysfunction type (N52.9) Active confirmed Problem [id number] Acute idiopathi c gout involving toe of right foot (M10.071) Active confirmed Problem 08766145 Hypercholesterol emia (E78.00) Active confirmed Vital Signs Blood pressure diastolic 60 mm Hg 04/08/2025 dena ght is up 8 pounds since 09-17-24 Height 66 in 04/08/2025 weight is up 8 pounds since 09-17-24 Blood pressure systolic 102 mm Hg 04/08/2025 weig ht is up 8 pounds since 09-17-24 Weight 168 lbs 04/08/2025 weight is up 8 pounds since 09-17-24 BMI 27.11 kg/m2 04/08/2025 weight is up 8 pounds since 09-17-24 Encounters Encounter Location Date Provider Diagnosis Ayden Ford MD [address] [place] [id number] 09/14/2024 Ayden Ford Elevated cholesterol with elevated triglycerides E78.2 and Hypercholesterolemia E78.00 Ayden Ford MD [address] [facility] [address] [place] [id number] 03/26/2025 Ayden Ford Elevated cholesterol with elevated triglycerides E78.2 Ayden Ford MD [address] [facility] [address] [place] [id number] 07/09/2025 Ayden Ford Elevated cholesterol with elevated triglycerides E78.2 and Encounter for administration of vaccine Z23 Ayden Ford MD [address] [place] [address] Drive [address] [place], [place] [id number] 09/17/2024 Ayden Ford Elevated cholesterol with elevated triglycerides E78.2 and Elevated BUN R79.9 Ayden Ford MD [address] [place] [address] Drive [address] [place] [id number] 04/08/2025 Ayden Ford Elevated cholesterol with elevated triglycerides E78.2 ; Elevated PSA R97.2 and Elevated BUN R79.9 Assessments Encounter Date Diagnosis (ICD Code) Assessment Notes Treatment Notes Treatment Clinical Notes Section Notes 09/14/2024 Elevated cholesterol with elevated triglycerides (ICD-10 - E78.2) 09/14/2024 Hypercholesterolemia (ICD-10 - E78.00) 03/26/2025 Elevated cholesterol with elevated triglycerides (ICD-10 - E78.2) 07/09/2025 Elevated cholesterol with elevated triglycerides (ICD-10 - E78.2) 09/17/2024 Elevated cholesterol with elevated triglycerides (ICD-10 - E78.2) doing better on no meds 09/17/2024 Elevated BUN (ICD-10 - R79.9) pending labs, will contnue to monitor 04/08/2025 Elevated cholesterol with elevated triglycerides (ICD-10 - E78.2) doing better, pending future labs 04/08/2025 Elevated PSA (ICD-10 - R97.2) had 2 biopsies one with atypical cells. not interested in any evaluation 07/09/2025 Encounter for administration of vaccine (ICD-10 - Z23) 04/08/2025 Elevated BUN (ICD-10 - R79.9) Plan Of Treatment Pending Test Test Name Order Date Electrocardiogram (EKG) 11/01/2019 Blood Urea Nitrogen 07/09/2025 Creatinine 07/09/2025 Next Appt Details Provider Name:Ayden briceño, 04/03/2026 07:30:00 AM, [address] [place] [address], [place] [address], [place], [place], [phone], Provider Name:Ayden briceño, 04/10/2026 08:30:00 AM, [address] [place] [address], [address] [place] [address], [phone], Insurance Providers Payer Name Payer Address Payer Phone Subscriber Number Group Number Insured Name Patient Relationship to Insured Coverage Start Date Coverage End Date [employer] [address] [place] [address] [id number] Nish Miner i Self - patient is the insured MEDEX BC OF [facility] [address] [place] [address] [phone] [id number] Nish Miner i Self - patient is the insured Medical (General) History Medical History History ICD Code colonoscopy 2009 had in 2019 adenoma due in 5 yeasrs atypical prostate cells on biopsy 2010 Elevated PSA R97.20 Cervical neuropathy G54.2
--- OUTSIDE RECORDS SUMMARY | 2025-07-09 11:37 | XMS_ITS | Patient Health Record ---
Author Organization [facility] [place] [place] Address [address] [place] [address] Care Team Providers Care Unix Administrator Name Role Phone Liliana ROQUE, Ayden Primary Care Provider Carmel Aguilar Unavailable [phone] Allergies Allergen (clinical drug ingredient) Drug/Non Drug Allergy documented on EMR Reaction Allergy Type Onset Date Status povidone-iodine Betadine dizziness Drug Allergy A ctive Adhesive rash Allergy Active Latex Latex rash Allergy Active Reason For Referral No Information Medications Medication SIG (Take, Route, Fr equency, Duration) Notes Start Date End Date Status traMADol HCl Active Colcrys 0.6 MG 1 tablet Orally once a day; Duration: 5 days 02/25/2021 Active Medrol chavez 4mg as directed orally a s directed; Duration: 6 days 02/25/2021 Not-Taking Immunizations Vaccine Route Administration Date Status Comme nts COVID-19 Moderna Vaccine Unknown 01/20/2021 Administered Second Dose: 01/27/2021 Social History Tobacco Use: Social History Observation Description Date Details (start date - stop date) Never Smoker NA - NA Tobacco Use/Smoking Question Answer Notes Are you a: nonsmoker Additional Findings: Tobacco Non-User Current no n-smoker Alcohol Screen Question Answer Notes Did you have a drink contain ing alcohol in the past year? Yes How often did you have a dri nk containing alcohol in the past year? Monthly or less (1 point) Points 1 Interpretation Negative Tobacco use other than smoking: Question Answer Notes Are you an other tobacco user? 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) Active confirmed Problem Gouty arthritis of right foot (2677534743430230 ) Gouty arthritis of right foot (M10.9) Active confirmed Plan Of Treatment Pending Test Test Name Order Date X ray : Foot, right 3V 02/25/2021 Insurance Providers Payer Name Payer Address Payer Phone Subscriber Number Group Number Insured Name Patient Relationship to Insured Coverage Start Date Coverage End Date [facility] [address] [place] [address] [id number] Cecile Miner i Spouse - patient is the spouse of the insured Medical (General) History Medical History History ICD Code Broken bones Gout Measles Mumps Chicken pox Surgical History Surgery Date(Month/Year) knee surgery 2009 tonsillectomy 1964 colonoscopy
== END 2025-07-09 09:57 | disposition home or self-care (01) ==
LOC: HO.LNP 09:56
PROVIDERS: Visit Provider Internal Medicine
DX: E78.2 Mixed hyperlipidemia (principal)
CPT/HCPCS: 82565; 84520